=== PATIENT | female | born 1935 | race Caucasian/White ===

== ENCOUNTER → 2016-05-28 | Outpatient (CLI) | payer OTHER ==
[~2016-05-28] VITALS: Ht 152.4 cm; Wt 54.2 kg
[~2016-05-28] MED LIST: ABILIFY10 MG; ABILIFY10 MG PO; AMBIEN 5 MG TABL5 MG PO; APAP500 PO; APLENZIN174 MG; BENICAR 5 MG5 MG PO; BENICAR20 MG PO; BUDEPRION SR150 MG PO; CARVEDILOL6.25 MG PO; CELEBREX 200 M200 MG PO; COUMADIN 1MG TAB1 M1 PO; COUMADIN 2 MG TA2 M1 PO; CYCLOBENZAPRINE10 MG PO; CYCLOBENZAPRINE5 MG; ENALAPRIL MALEA10 M1 PO; ENDOCET 10-3251 EACH PO; FENTANYL PA12 MCG/H1 TP; FENTANYL PA12 MCG/HR TP; FENTANYL PA25 MCG/HR TRANSDERM; FISH OIL 1,001000 M2 PO; HYDROCODON-ACE1 EAC7 PO; HYDROCODONE-AP1 EAC6 PO; HYDROCODONE-APA1 TA1 PO; LIPITOR40 MG PO; LOSARTAN POTAS100 MG PO; MEDROLDOSEPACK PO; NEURONTIN 300300 M1 PO; OXYCODONE HCL5 M1 PO; OXYCODONE-ACET1 EAC2 PO; OXYCODONE-APAP1 EAC6 PO; PERCOCET 10-321 EACH; PERCOCET 5-3251 EACH PO; PERCOCET 7.5-31 EACH PO; TOPROL XL25 MG PO; VICODIN 5-5001 EACH PO; ZOLOFT 50 MG TA50 M1 PO
--- NOTE | ~2016-05-28 | HPC ---
[facility] [address] [place] [address] PAIN MANAGEMENT CONSULTATION Name: BRITTANY ROUSSEAU Room #: REG [facility] M..#: [id number] Admission: 05/28/16 Attend Phys: Cesar Kam DO Discharge: Date of : 37 Report #: [id number] THIS REPORT FOR: //name// CC: Cesar Azevedo DATE OF SERVICE: 05/28/2016 REFERRING PHYSICIAN: Cesar Donaldson DO CHIEF COMPLAINT: Low back pain, left lower extremity pain and paresthesias. HISTORY OF PRESENT ILLNESS: As you know, patient is a 81-year-old female who returns today in followup visit for continuation of medication therapy. She states that the combination of medications provided at last visit is improving pain significantly. She rarely relies on any of the hydrocodone since her fentanyl 25 mcg patch was begun. She is extremely pleased with response to the medication, returning today in followup visit, denying side effects of somnolence, decreased mental acuity, disorientation, confusion or constipation. She is now able to participate more fully in activities indicating today that she feels better than she has in years. She returns today for medication management refills. ALLERGIES: CIPROFLOXACIN. CURRENT MEDICATIONS: Fentanyl 25 mcg q. 72 hours, hydrocodone/acetaminophen 5/325 one tab p.o. q.8 hours p.r.n. for pain, losartan 100 mg per day, metoprolol 25 mg per day, acetaminophen 500 mg twice a day, omega-3 fish oil 1 tab per day, warfarin 2 mg per day, atorvastatin 40 mg per day. SOCIAL HISTORY: The patient continues to smoke 1 pack tobacco per day, has done so for as long as she can remember. Denies IV or illicit drug use. Denies any chronic alcohol use. Unaccompanied today. IMAGING: No new imaging available. PHYSICAL EXAMINATION: GENERAL: Well developed, well nourished, well hydrated 81-year-old female, smells strongly of tobacco smoke, placing current pain score 1-2/10. HEENT: Normocephalic, atraumatic. Pupils equal, round, reactive to light. Speech fluent. EXTREMITIES: Show no clubbing, no cyanosis, no edema. MUSCULOSKELETAL: Seated straight leg raising negative. Supine straight leg raising positive. Fabere's test negative. Gait is antalgic, but significantly improved. She is displaying scoliosis and kyphosis in a standing position. [address] [address] PAIN MANAGEMENT CONSULTATION Name: BRITTANY ROUSSEAU Room #: REG [facility]#: [id number] Admission: 05/28/16 Attend Phys: Cesar Kam DO Discharge: Date of : 37 Report #: [id number] ASSESSMENT: 1. Symptomatic lumbar radiculopathy. 2. Spinal stenosis of lumbar spine. 3. Scoliosis. 4. Kyphosis. 5. Lumbosacral spondylosis with radicular symptoms. 6. Lumbar degeneration. 7. Chronic intractable pain. PLAN: 1. The patient returns today in followup visit having noted excellent benefit with medication management. The patient indicates her pain is very well controlled with the fentanyl. She rarely utilizes the hydrocodone. She returns today in followup visit for refills of fentanyl for the next 2 months. 2. The patient was provided a prescription of fentanyl 25 mcg patch 1 patch q. 72 hours. She has not completed her 8 week release from last visit, so she will be provided a 4-week release and 8 week release today for 3 months worth of medication. She is to go ahead and fill the 8 week release from last visit to complete 3 months and then initiate therapy with the new prescriptions in 4 weeks and 8 weeks. 3. The patient was provided a prescription of hydrocodone 5/325 one tab p.o. q. 6 hours p.r.n. for pain, I have given the patient #60. This should provide the patient with enough medication for the next 3 months. 4. We will see the patient back in followup visit in 3 months for medication management, earlier if changes need to be addressed. 5. We did discuss with the patient again smoking cessation. We strongly suggest the patient initiated cessation of smoking as smoking has been directly linked to increasing chronic pain. The patient will consider options, but is likely not to make any changes in her social history. We strongly suggest this once again as this would improve her overall pain and decrease comorbid issues. By: [id number] Cesar Kam DO /nt
[2016-05-28 13:07] VITALS: BP 115/64
== END | disposition home or self-care (01) ==
LOC: PAIN 12:58
DX: M54.16 Radiculopathy, lumbar region (principal); M48.06 Spinal stenosis, lumbar region; M41.9 Scoliosis, unspecified; M40.209 Unspecified kyphosis, site unspecified; M51.36 Other intervertebral disc degeneration, lumbar region; G89.29 Other chronic pain; F17.290 Nicotine dependence, other tobacco product, uncomplicated

== ENCOUNTER → 2016-09-25 | Outpatient (CLI) | payer OTHER ==
[~2016-09-25] VITALS: Ht 152.4 cm; Wt 51.0 kg
--- NOTE | ~2016-09-25 | HPC ---
[facility] [place] [address] PAIN MANAGEMENT CONSULTATION Name: BRITTANY ROUSSEAU Room #: REG [facility]..#: [id number] Admission: 09/25/16 Attend Phys: Cesar Kam DO Discharge: Date of : 37 Report #: [id number] THIS REPORT FOR: //name// CC: Cesar Azevedo DATE OF SERVICE: 09/25/2016 CHIEF COMPLAINT: Low back pain, left lower extremity pain and paresthesias, generalized body pain. HISTORY OF PRESENT ILLNESS: As you know, patient is a 81-year-old female with longstanding history of low back pain, left lower extremity pain and paresthesias and generalized body pain. She has been started on fentanyl at 25 mcg along with hydrocodone 5/325 one tab every 8 hours p.r.n. for pain, is working well for pain control. The patient is placing pain score of around 3/10 at present. She does indicate pain is exacerbated with walking, which can reach a level of 6-7/10. Despite this elevated pain score, the patient indicates pain medications are working well. She is denying any side effects with the therapy and wishes to continue the treatment as currently prescribed. The patient continues to smoke despite our discussions to discontinue and how smoking can affect chronic pain. She returns today for refills of medications. ALLERGIES: CIPROFLOXACIN. CURRENT MEDICATIONS: Hydrocodone 5/325 one tab every 8 hours p.r.n. for pain, fentanyl 25 mcg q. 72 hours, losartan 100 mg per day, metoprolol 25 mg once a day, Tylenol 500 mg twice a day, omega-3 fish oil 1 tab per day, warfarin 2 mg p.o. every day, atorvastatin 40 mg per day. SOCIAL HISTORY: The patient continues to smoke 1 pack of tobacco or greater per day. She has done so for as long as she can remember. Denies IV or illicit drug use. Denies any chronic alcohol use. She is accompanied by her son who is present in room today. IMAGING: No new imaging available. PHYSICAL EXAMINATION: VITAL SIGNS: Blood pressure 116/67, pulse 120, respiratory rate 16, unlabored. The patient is 98% on room air. Height 5 feet tall, weight 112.4 pounds, BMI calculated 22.0. GENERAL: Well-developed, well-nourished, well-hydrated, kyphotic and scoliotic 81-year-old female, smells strongly of tobacco smoke, placing current pain score around 3-6/10 depending on activity. HEENT: Normocephalic, atraumatic. Pupils are equal, round, reactive to light. [address] [address] PAIN MANAGEMENT CONSULTATION Name: BRITTANY ROUSSEAU Room #: REG [facility] M..#: [id number] Admission: 09/25/16 Attend Phys: Cesar Kam DO Discharge: Date of : 37 Report #: [id number] Speech is fluent. EXTREMITIES: Show no clubbing, no cyanosis, no edema. MUSCULOSKELETAL: Seated straight leg raising negative. Supine straight leg raising remains positive left. Roni's test negative. Modified Gaenslen's positive for axial low back pain. Gait is kyphotic, scoliotic and antalgic favoring the left lower extremity. Muscle bulk and tone equal and symmetrical in lower extremities. ASSESSMENT: 1. Symptomatic lumbar radiculopathy. 2. Progressively worsening spinal stenosis of lumbar spine. 3. Scoliosis. 4. Kyphosis. 5. Lumbosacral spondylosis with radicular symptoms. 6. Lumbar degeneration. 7. Tobacco habituation. 8. Chronic intractable pain. PLAN: 1. The patient returns today in followup visit requesting refill on medications. The patient is indicating increasing pain levels, now placing pain score anywhere from 3-6/10 depending on activity. I have advised the patient at this time, we would strongly recommend discontinuation of smoking. I understand the patient has been smoking for virtually her entire life, but this is not a reason to continue to participate in an activity that is known to exacerbate chronic pain. We have had a very long discussion with the patient today. I am confident she will not take our suggestions. Did discuss with the patient the concern we have with smoking and how it directly affects pain and that increasing her pain medications from here forward would be predicated on the fact that the patient is continuing to participate in activities that exacerbate symptoms. We have advised the patient at this time further escalation in medications will not be provided to our services until she makes a concerted effort at reducing activities that are exacerbating her pain. 2. The patient was provided a prescription of fentanyl 25 mcg patch, 1 patch q. 72 hours. I have given the patient #10 patches, releases of today, 4 weeks from today, 8 weeks from today, 3 months' worth of medication. 3. The patient was provided prescription of hydrocodone 5/325 one tab p.o. q. 8 hours p.r.n. for pain. I have given the patient #90 tablets, no refills. This will last for 3 months. She is barely utilizing these medications and they are only being used on an as needed basis. 4. We will see the patient back in followup visit 3 months from today for [address] [address] PAIN MANAGEMENT CONSULTATION Name: BRITTANY ROUSSEAU Room #: [facility]#: [id number] Admission: 09/25/16 Attend Phys: Cesar Kam DO Discharge: Date of : 37 Report #: [id number] continuation of fentanyl therapy at 25 mcg and renew of her hydrocodone. She may return earlier for interventional treatments. <ELECTRONICALLY SIGNED> By: Cesar Kam DO 10/01/16 1258 [id number] [id number] Cesar Kam DO /nt
[2016-09-25 10:47] VITALS: BP 116/67
== END | disposition home or self-care (01) ==
LOC: PAIN 07:16
DX: M47.26 Other spondylosis with radiculopathy, lumbar region (principal); M47.27 Other spondylosis with radiculopathy, lumbosacral region; M41.86 Other forms of scoliosis, lumbar region; M48.06 Spinal stenosis, lumbar region; F17.200 Nicotine dependence, unspecified, uncomplicated

== ENCOUNTER → 2017-01-28 | Outpatient (CLI) | payer OTHER ==
[~2017-01-28] VITALS: Ht 152.4 cm; Wt 50.4 kg
[~2017-01-28] MED LIST changes: +DURAGESIC25 MCG/HR TRANSDERM
--- NOTE | ~2017-01-28 | HPC ---
[facility] [address] [place] [address] PAIN MANAGEMENT CONSULTATION Name: BRITTANY ROUSSEAU Room #: REG [facility].#: [id number] Admission: 01/28/17 Attend Phys: Cesar Kam DO Discharge: Date of : 37 Report #: [id number] THIS REPORT FOR: //name// CC: Cesar Azevedo DATE OF SERVICE: 01/28/2017 REFERRING PHYSICIAN: Cesar Donaldson DO CHIEF COMPLAINT: Low back pain, left lower extremity pain and paresthesias, generalized body pain. HISTORY OF PRESENT ILLNESS: As you know, the patient is a 81-year-old female who returns today in followup visit for medication management. She states medications are working beneficially for pain control, in fact she indicates about an 80% improvement in overall pain. Interestingly, the patient does provide a pain score 6/10 today, which does not correlate with that statement. She indicates pain is chronic and stabbing in nature, exacerbated with standing and walking, improves with medications, sitting and lying down. She returns today in followup visit indicating that she remains a heavy smoker and has not chosen to discontinue or reduce her reliance on this social activity, which has been known to cause direct increase in chronic pain. She returns today for medication refills. ALLERGIES: CIPROFLOXACIN. CURRENT MEDICATIONS: Hydrocodone, fentanyl, losartan, metoprolol, Tylenol, omega-3 fish oil, warfarin, and atorvastatin. SOCIAL HISTORY: The patient continues to smoke at least 1 pack tobacco per day. Denies IV or illicit drug use. Denies any chronic alcohol use. Unaccompanied today. IMAGING: No new imaging available. PHYSICAL EXAMINATION: VITAL SIGNS: Blood pressure 126/65, pulse 78, respiratory rate 14 and unlabored, the patient is 100% on room air, height 5 feet tall, weight 111.2 pounds, and BMI calculated 21.7. GENERAL: Well-developed, well-nourished, well-hydrated, thin, kyphotic and scoliotic 81-year-old female, she appears much older than stated age, smells strongly of tobacco smoke, placing current pain score 6/10. HEENT: Normocephalic, atraumatic. Pupils are equal, round, and reactive to light. Speech is fluent. [address] [address] PAIN MANAGEMENT CONSULTATION Name: BRITTANY ROUSSEAU Room #: REG [facility]#: [id number] Admission: 01/28/17 Attend Phys: Cesar Kam DO Discharge: Date of : 37 Report #: [id number] EXTREMITIES: Show clubbing, no cyanosis, no edema. MUSCULOSKELETAL: Seated straight leg raising negative. Supine straight leg raising positive on the left. Roni's test negative. Modified Gaenslen's positive for axial low back pain. Gait is antalgic. Stance is kyphotic with loss of lordotic curvature. ASSESSMENT: 1. Symptomatic lumbar radiculopathy. 2. Progressively worsening spinal stenosis of the lumbar spine. 3. Scoliosis. 4. Kyphosis. 5. Lumbosacral spondylosis with radiculopathy. 6. Lumbar degeneration. 7. Tobacco habituation. 8. Chronic intractable pain. PLAN: 1. The patient has returned today in followup visit where we have discussed at length medication management. The patient feels medications are working beneficially, providing an extremely high level of improvement 90%, though the patient continues to experience pain level of 6/10, which does not correlate with that statement. We have discussed this with the patient today. She indicates that she is experiencing 6/10 pain today. We have discussed with the patient medications, we did indicate the medications are being provided to gain analgesic benefit the fact that she continues to participate in activities that are known to exacerbate symptoms are quite concerning. We have discussed the smoking issue with the patient in the past and have done so again today. I did indicate that these medications may ultimately be predicated on the fact that she is participating in activities that improve pain and not worsen symptoms. These medications may ultimately have to be reduced if she cannot discontinue the activity of smoking, which she has been participating in for over 56 years. 2. The patient was provided a prescription of fentanyl 25 mcg patch 1 patch q.72 hours, #10, release dates of today, 4 weeks from today, and 8 weeks from today, this is 3 months' worth of medication. 3. The patient was provided a prescription of hydrocodone 5/325 one tab every 8 hours p.r.n. for pain, #90, release dates of today, 4 weeks from today, 8 weeks from today, 3 months' worth of medication. 4. The patient was offered the opportunity to initiate medication to help smoking cessation. We also offered assistance in sending the patient for cognitive behavioral therapy. The patient declined all our offers to assist in [address] [address] PAIN MANAGEMENT CONSULTATION Name: BRITTANY ROUSSEAU Room #: [facility]#: [id number] Admission: 01/28/17 Attend Phys: Cesar Kam DO Discharge: Date of : 37 Report #: [id number] smoking cessation. 5. We will see the patient back in followup visit in 3 months from today. <ELECTRONICALLY SIGNED> By: Cesar Kam DO 01/29/17 1219 [id number] [id number] Cesar Kam DO /nt
[2017-01-28 11:05] VITALS: BP 126/65
== END ==
LOC: PAIN 06:46
DX: M47.27 Other spondylosis with radiculopathy, lumbosacral region (principal); M41.86 Other forms of scoliosis, lumbar region; M48.061 Spinal stenosis, lumbar region without neurogenic claudication; G89.29 Other chronic pain; M79.662 Pain in left lower leg; F17.200 Nicotine dependence, unspecified, uncomplicated

== ENCOUNTER → 2017-05-21 | Outpatient (CLI) | payer OTHER ==
[~2017-05-21] VITALS: Ht 152.4 cm; Wt 50.4 kg
[~2017-05-21] MED LIST changes: +XARELTO15 MG PO
--- NOTE | ~2017-05-21 | HPC ---
[facility] [place] [address] PAIN MANAGEMENT CONSULTATION Name: BRITTANY ROUSSEAU Room #: REG [facility].#: [id number] Admission: 05/21/17 Attend Phys: Cesar Kam DO Discharge: Date of : 37 Report #: [id number] THIS REPORT FOR: //name// CC: Cesar Azevedo DATE OF SERVICE: 05/21/2017 REFERRING PHYSICIAN: Cesar Donaldson DO. CHIEF COMPLAINT: Low back pain, left lower extremity pain with paresthesias, generalized body pain. HISTORY OF PRESENT ILLNESS: As you know, the patient is an 82-year-old female who returns today in followup visit for medication management. She states medications are working beneficially for pain control. Despite the fact that patient is indicating good control with pain medications, she is placing pain score of 4/10. She continues to smoke heavily and this is exacerbating her symptoms. She indicates pain is exacerbated with walking, standing, cooking, improves with medications, sitting and lying down. She has returned today in followup visit requesting refill on medications. She reports pain is aching, dull and chronic in nature. No changes in medical history since our last visit. ALLERGIES: CIPROFLOXACIN. CURRENT MEDICATIONS: Hydrocodone, fentanyl, losartan, metoprolol, Tylenol, omega-3 fish oil, warfarin, and atorvastatin. SOCIAL HISTORY: The patient continues to smoke minimum 1 pack tobacco per day. Denies IV or illicit drug use. Denies any chronic alcohol use. She is accompanied by family members present in room today. IMAGING: No new imaging available. PQRS: The patient has osteoarthritis, no rheumatoid arthritis. She has pain level of 4/10. She is a fall risk, but has not fallen in the past 3 months. The patient is on blood thinners. She is treated for hypertension. She has been on opioids for much longer than 6 weeks. She has a low to medium risk assessment for opioid addiction. Functional assessment pain impact score of 38/70 indicating moderate interference. PHYSICAL EXAMINATION: VITAL SIGNS: Blood pressure 132/69, pulse 89, respiratory rate 14 and unlabored. The patient is 97% on room air. Height 5 feet tall, weight 111.2 pounds, BMI [place] 21.7. [place] [address] PAIN MANAGEMENT CONSULTATION Name: BRITTANY ROUSSEAU Room #: REG [facility].#: [id number] Admission: 05/21/17 Attend Phys: Cesar Kam DO Discharge: Date of : 37 Report #: [id number] GENERAL: Well-developed, thin, kyphotic, scoliotic 82-year-old female, appears much older than stated age, smells strongly of tobacco smoke, placing pain score 4/10. HEENT: Normocephalic, atraumatic. Pupils equal, round, reactive to light. Speech fluent for patient. EXTREMITIES: Show no clubbing, no cyanosis, no edema. MUSCULOSKELETAL: Lower extremity strength is weakened bilaterally. This is due to deconditioning. Seated straight leg raising negative. Supine straight leg raising positive on the left. ALEJO test negative. Modified Gaenslen's positive for axial low back pain. Gait is antalgic. She is using a roller walker. ASSESSMENT: 1. Symptomatic lumbar radiculopathy. 2. Progressively worsening spinal stenosis of lumbar spine. 3. Scoliosis. 4. Kyphosis. 5. Lumbosacral spondylosis with radiculopathy. 6. Lumbar degeneration. 7. Tobacco abuse. 8. Chronic intractable pain. PLAN: 1. The patient returns today in followup visit requesting refill on medications. She indicates pain medications are working beneficially for pain control despite the pain level of 4/10. She is denying any side effects to medication including somnolence, decrease in mental acuity, disorientation and confusion. She does find the medications beneficial allowing her to go about her activities of daily living. She has requested refill on medications at this time. 2. The patient was provided a prescription of fentanyl 25 mcg patch 1 patch q. 72 hours, #10 releases of today, 4 weeks from today, 8 weeks from today. This totals 60 mg morphine equivalents per day. 3. The patient was provided prescription of hydrocodone 5/325 one tab every 8 hours p.r.n. for pain, given #90 tablets releases of today, 4 weeks from today, 8 weeks from today. This equals 15 morphine equivalents a day. 4. The patient and I had a very long discussion again about smoking cessation and how smoking directly links to chronic pain issues. I have recommended and have recommended throughout our history smoking cessation as a way to improve her overall pain. The patient is unwilling to make this change. 5. We will see the patient back in followup visit in 3 months. At that time, [address] [address] PAIN MANAGEMENT CONSULTATION Name: BRITTANY ROUSSEAU Room #: [facility]#: [id number] Admission: 05/21/17 Attend Phys: Cesar Kam DO Discharge: Date of : 37 Report #: [id number] we will discuss medication management and adjust if necessary to new CDC guidelines. <ELECTRONICALLY SIGNED> By: Cesar Kam DO 05/27/17 0935 [id number] [id number] Cesar Kam DO /nt
[2017-05-21 11:07] VITALS: BP 132/69
== END ==
LOC: PAIN 06:54
DX: M47.27 Other spondylosis with radiculopathy, lumbosacral region (principal); M51.36 Other intervertebral disc degeneration, lumbar region; M48.061 Spinal stenosis, lumbar region without neurogenic claudication; M41.9 Scoliosis, unspecified; G89.4 Chronic pain syndrome; F17.200 Nicotine dependence, unspecified, uncomplicated

== ENCOUNTER → 2017-09-23 | Outpatient (CLI) | payer OTHER ==
[~2017-09-23] VITALS: Ht 152.4 cm; Wt 50.7 kg
--- NOTE | ~2017-09-23 | HPC ---
[facility] [address] [place] [address] PAIN MANAGEMENT CONSULTATION Name: BRITTANY ROUSSEAU Room #: REG [facility].#: [id number] Admission: 09/23/17 Attend Phys: Cesar Kam DO Discharge: Date of : 39 Report #: [id number] THIS REPORT FOR: //name// CC: Cesar Azevedo DATE OF SERVICE: 09/23/2017 REFERRING PHYSICIAN: Cesar Donaldson D.O. CHIEF COMPLAINT: Low back pain, left lower extremity pain with paresthesias and generalized body pain. HISTORY OF PRESENT ILLNESS: As you know, the patient is an 82-year-old female who returns today in followup visit for medication management. The patient states pain medications are working well. She denies any side effects of the medication including somnolence, decreased mental acuity, disorientation and confusion. As you are aware, the patient suffers from progressively worsening spinal stenosis that leads to lumbar radicular symptoms involving left lower extremity. She also has severe scoliosis and severe kyphosis leading to intractable upper back pain. She returns today in followup visit requesting refill of medications. She continues to abuse tobacco despite our suggestions to discontinue as this is promoting her ongoing pain issues. She returns today requesting refill on medications. ALLERGIES: To CIPROFLOXACIN. CURRENT MEDICATIONS: Hydrocodone, fentanyl, losartan, metoprolol, Tylenol, omega 3 fish oil, warfarin and atorvastatin. SOCIAL HISTORY: The patient continues to smoke 1 pack tobacco per day. Denies IV or illicit drug use. Denies any chronic alcohol use. She is unaccompanied today. IMAGING DATA: No new imaging available. PQRS: The patient has osteoarthritis of the cervical, thoracic and lumbar area. She has arthritic changes of the hands bilaterally, bilateral knees, bilateral ankles and bilateral hips. She does not suffer from rheumatoid arthritis. She is placing current pain score 2-9/10 depending on activity. She is at fall risk but has not had a fall in the last 3 months. She is on blood thinners. She is treated for hypertension. She has been on opioids for greater than 6 months, is under contract with [facility] for medication management. She has a medium risk of his opioid addiction. [address] [address] PAIN MANAGEMENT CONSULTATION Name: BRITTANY ROUSSEAU Room #: REG [facility].#: [id number] Admission: 09/23/17 Attend Phys: Cesar Kam DO Discharge: Date of : 37 Report #: [id number] PAIN IMPACT SCORE: Functional assessment pain impact score is 45/70. K-TRACS and MoTracks are negative for any concerning injuries. She appears to be utilizing her medications appropriately. PHYSICAL EXAMINATION: VITAL SIGNS: Blood pressure 137/67, pulse is 88 and respiratory rate 14 and unlabored. The patient is 97% on room air. Height 5 feet tall 100, weight 111.8 pounds and BMI calculated 21.8. GENERAL: Well-developed, well-nourished and well-hydrated, scoliotic and kyphotic 82-year-old female, smell strongly of tobacco smoke, placing pain score anywhere from 2-9/10. HEENT: Normocephalic and atraumatic. Pupils equal, round and reactive to light. EXTREMITIES: Show no clubbing and no cyanosis. MUSCULOSKELETAL: Lower extremity strength is weakened bilaterally, this appears to be deconditioning. Seated straight leg raising negative. Supine straight leg raising mildly positive on in the left. Roni's test negative. ASSESSMENT: 1. Symptomatic lumbar radiculopathy. 2. Progressively worsening spinal stenosis of the lumbar spine. 3. Kyphoscoliosis. 4. Lumbosacral spondylosis with radiculopathy. 5. Lumbar degeneration. 6. Lumbosacral spondylosis with radiculopathy. 7. Chronic intractable pain. PLAN: 1. The patient returns today in followup visit requesting refill of medications. She feels medications are working beneficially, providing upwards of 70% improvement in overall pain despite the elevated pain levels of 2-9/10 depending on activity. She has requested a refill of medication be provided today. 2. We reviewed the fact that opiate medications are being used to provide analgesia adequate to support activities of daily living, not attempting to achieve a specific pain score on the 0-10 Visual Analog Scale. The current opiate medications are providing sufficient analgesia to allow the patient to participate in activities of daily living. The patient is not exhibiting any aberrant behavior suggestive of drug diversion. The patient is not having any adverse reactions to medications. The patient is not suffering from daytime somnolence or mental acuity changes. The patient is managing opiate-induced constipation with appropriate mpev-icf-ryhlzzs agents and dietary considerations. The patient was counseled on concern for caution with operating a motor vehicle while using opiate medications. [facility] [address] [place] [address] PAIN MANAGEMENT CONSULTATION Name: BRITTANY ROUSSEAU Room #: REG [facility]#: [id number] Admission: 09/23/17 Attend Phys: Cesar Kam DO Discharge: Date of : 37 Report #: [id number] A physical exam was performed and the patient's functional status was evaluated. All patients with back pain were advised against the bed rest greater than 4 days and were advised to return to normal activities. Pain score assessment was noted and the treatment plan was reviewed with the patient. All current medications, both prescribed and OTC were reviewed and reconciled on the electronic medical record. Tobacco screening was accomplished and smoking cessation was advised when indicated. BMI was noted and diet/exercise modification was recommended for all patients following outside normal parameters. I reviewed with the patient today their responsibilities to safeguard prescription medications, reviewed their responsibility to utilize medications only as prescribed by the physician. They are to seek and receive pain medications only from 1 physician group ( [facility]). They are to use 1 pharmacy and keep the clinic informed if they change pharmacies. Their responsibilities include making followup visits in a timely fashion and to avoid abrupt discontinuation of medication usage. Their responsibilities further include bringing their medications (bottles from the pharmacy with residual pills) to the visit for possible confirmation of pill counts and the patient understands it is their responsibility to submit to random drug screens to ensure both that the medications prescribed are present, and that no other controlled substances are present. All prescriptions provided today were generated electronically. 3. The patient was provided a prescription of fentanyl 25 mcg patch 1 patch q. 72 hours. I have given the patient #10, releases of today, 4 weeks from today, 8 weeks from today, 3 months' worth of medication. She has total morphine equivalents of 60 mg with the use of the fentanyl. 4. The patient was provided a prescription of hydrocodone 5/325 one tab every 8 hours p.r.n. for pain. I have released the medication today #90 tablets, no refills. She takes these sparingly and only uses them when her pain is intense. She has been using them appropriately. 5. We will see the patient back in followup visit in 3 months for medication therapy. <ELECTRONICALLY SIGNED> By: Cesar Kam DO 09/24/17 [id number] Cesar Kam DO /nt
[2017-09-23 14:30] VITALS: BP 137/67
== END ==
LOC: PAIN 07:09
DX: M47.27 Other spondylosis with radiculopathy, lumbosacral region (principal); M51.16 Intervertebral disc disorders with radiculopathy, lumbar region; M48.061 Spinal stenosis, lumbar region without neurogenic claudication; G89.4 Chronic pain syndrome; M41.86 Other forms of scoliosis, lumbar region

== ENCOUNTER → 2018-01-20 | Outpatient (CLI) | payer OTHER ==
[~2018-01-20] VITALS: Ht 152.4 cm; Wt 55.5 kg
[~2018-01-20] MED LIST changes: +DURAGESIC1 EAC4 TRANSDERM
--- NOTE | ~2018-01-20 | HPC ---
[facility] [address] [place] [address] PAIN MANAGEMENT CONSULTATION Name: BRITTANY ROUSSEAU Room #: REG [facility].#: [id number] Admission: 01/20/18 Attend Phys: Cesar Kam DO Discharge: Date of : 37 Report #: [id number] THIS REPORT FOR: //name// CC: Cesar Azevedo DATE OF SERVICE: 01/20/2018 REFERRING PHYSICIAN: Cesar Donaldson D.O. CHIEF COMPLAINT: Low back pain, left lower extremity pain with paresthesias and generalized body pain. HISTORY OF PRESENT ILLNESS: As you know, the patient is an 82-year-old female returning in followup visit for medication management. She feels medications are working beneficially to treat her low back pain and left lower extremity pain and generalized body pain. The patient places pain score no greater than 6-7/10 today but states this is mainly due to increasing cold temperatures. Overall, the patient states the medications are working up to 70%-80% overall. She returns today in followup visit for medication management. She is denying side effects of sleepiness, disorientation, confusion and mental slowing with the use of therapy. ALLERGIES: CIPROFLOXACIN. CURRENT MEDICATIONS: Fentanyl 25 mcg q. 72 hours, Xarelto 15 mg once a day, losartan 100 mg per day, metoprolol 25 mg once a day, atorvastatin 40 mg per day and hydrocodone 5/325 one tab every 6 hours p.r.n. pain. SOCIAL HISTORY: The patient continues to smoke 1 pack tobacco per day. Denies IV or illicit drug use. Denies any chronic alcohol use. She is unaccompanied today. IMAGING DATA : No new imaging available. PQRS: The patient has arthritic changes of the cervical spine, thoracic and lumbar area, bilateral hands, bilateral knees, bilateral ankles and bilateral hips. She does not suffer from rheumatoid arthritis and has no diagnosis of such. She is placing pain score 6-7/10, not a fall risk, has not had a fall in the last 3 months. She is on Xarelto for blood thinning. She is treated for hypertension. She has been on chronic opioids for greater than 6 weeks. She is under contract with [facility]. She is at a low assessment for opioid addiction. She is placing current pain impact/functional assessment at 38/70 indicating moderate interference of daily activities secondary to pain. [address] [address] PAIN MANAGEMENT CONSULTATION Name: BRITTANY ROUSSEAU Room #: REG [facility] Jonathan#: [id number] Admission: 01/20/18 Attend Phys: Cesar Kam DO Discharge: Date of : 37 Report #: [id number] PHYSICAL EXAMINATION: VITAL SIGNS: Blood pressure 126/61, pulse 85 and respiratory rate 14 and unlabored. The patient is 98% on room air. Height 5 feet tall, weight 122.4 pounds and BMI calculated 23.9. GENERAL: Well-developed, well-nourished and well-hydrated 82-year-old female, appears her stated age. She is in no acute distress, awake, alert and oriented x 3. Current pain score rated at 6-7/10. HEENT: Normocephalic and atraumatic. Pupils equal, round and reactive to light. Extraocular muscles are intact. Speech fluent. EXTREMITIES: Show no clubbing, no cyanosis and no edema. MUSCULOSKELETAL: Lower extremity strength is weakened bilaterally. Seated straight leg raise negative. Supine straight leg raising mildly positive left. Roni's test negative. Gait is antalgic favoring left lower extremity over right. Muscle bulk and tone appears symmetrical in comparing left lower extremity to right. ASSESSMENT: 1. Symptomatic lumbar radiculopathy. 2. Progressively worsening spinal stenosis of the lumbar spine. 3. Kyphoscoliosis. 4. Lumbosacral spondylosis with radiculopathy. 5. Lumbar degeneration. 6. Facet arthropathy of the lumbar spine. 7. Chronic intractable pain. 8. Complicated medication therapy. PLAN: 1. The patient returns today in followup visit where we have discussed the efficacy of the fentanyl along with hydrocodone dosing. The patient states 70%-80% improvement in overall pain despite the elevated pain level of 6-7/10 today. She denies any side effects to the medication including somnolence, decreased mental acuity, disorientation, confusion and mental slowing as well as constipation. She returns requesting refill of the medications for the next 3 months. 2. The patient will submit to urine drug screen as part of our monitoring program for chronic opioid medication management. She will undergo the testing today. She can contact the clinic next week for results. 3. We reviewed the fact that opiate medications are being used to provide analgesia adequate to support activities of daily living, not attempting to achieve a specific pain score on the 0-10 Visual Analog Scale. The current opiate medications are providing sufficient analgesia to allow the patient to participate in activities of daily living. The patient is not exhibiting any aberrant behavior suggestive of drug diversion. The patient is not having any adverse reactions to medications. The patient is not suffering from daytime somnolence or mental acuity changes. The patient is managing opiate-induced constipation with appropriate aknh-eer-byplcem agents and dietary [address] [address] PAIN MANAGEMENT CONSULTATION Name: BRITTANY ROUSSEAU Room #: REG [facility]#: [id number] Admission: 01/20/18 Attend Phys: Cesar Kam DO Discharge: Date of : 37 Report #: [id number] considerations. The patient was counseled on concern for caution with operating a motor vehicle while using opiate medications. A physical exam was performed and the patient's functional status was evaluated. All patients with back pain were advised against the bed rest greater than 4 days and were advised to return to normal activities. Pain score assessment was noted and the treatment plan was reviewed with the patient. All current medications, both prescribed and OTC were reviewed and reconciled on the electronic medical record. Tobacco screening was accomplished and smoking cessation was advised when indicated. BMI was noted and diet/exercise modification was recommended for all patients following outside normal parameters. I reviewed with the patient today their responsibilities to safeguard prescription medications, reviewed their responsibility to utilize medications only as prescribed by the physician. They are to seek and receive pain medications only from 1 physician group ( [facility]). They are to use 1 pharmacy and keep the clinic informed if they change pharmacies. Their responsibilities include making followup visits in a timely fashion and to avoid abrupt discontinuation of medication usage. Their responsibilities further include bringing their medications (bottles from the pharmacy with residual pills) to the visit for possible confirmation of pill counts and the patient understands it is their responsibility to submit to random drug screens to ensure both that the medications prescribed are present, and that no other controlled substances are present. All prescriptions provided today were generated electronically. 4. The patient was provided a prescription of fentanyl 25 mcg patch 1 patch q. 72 hours. I have given the patient #10 patches, releases of today, 4 weeks from today, 8 weeks from today, 3 months' worth of medication. The patient was advised to monitor this medication carefully. She is not to utilize more than 1 patch at a time and she is to rotate positions of the patch placement. 5. The patient was provided a prescription of hydrocodone 5/325 one tab p.o. q. 8 hours p.r.n. for pain. I have given the patient #90 tablets, no refills. The patient is to utilize medication only when pain is intolerable, not to rely on the medication prophylactically. 6. We will see the patient back in followup visit in 3 months for refill of medications. By: [id number] Cesar Kam DO /nt
[2018-01-20 09:13] VITALS: BP 126/61
== END ==
LOC: PAIN 08:26
DX: M47.27 Other spondylosis with radiculopathy, lumbosacral region (principal); M51.16 Intervertebral disc disorders with radiculopathy, lumbar region; M41.86 Other forms of scoliosis, lumbar region; M48.061 Spinal stenosis, lumbar region without neurogenic claudication; G89.4 Chronic pain syndrome; M12.88 Other specific arthropathies, not elsewhere classified, other specified site; Z79.899 Other long term (current) drug therapy

== ENCOUNTER → 2018-03-25 | Outpatient (CLI) | payer OTHER ==
[~2018-03-25] VITALS: Ht 152.4 cm; Wt 54.9 kg
[2018-03-25 08:48] VITALS: BP 123/67
--- NOTE | 2018-03-25 09:03 | NUR ---
Pain Clinic Assessment: 1. History of Osteoarthritis: none History of Rheumatoid Arthritis: none 2. Height: 5 ft. 0 in. 152.4 cm. Weight: 121.0 lb. oz. 54.885 kg. Patient's BMI: 23.6 3. Vital Signs: BP: 123/67 Pulse: 103 Resp: 14 Temp: 02 Sat: 98 ECG Mon: 4. Pain Intensity: 6-7 5. Fall Risk: Dizziness: N Needs help standing or walking: N Fallen in the last 3 months: N Fall risk comments: 6. Patient on Blood Thinner: xeralto 7. History of Hypertension: Y 8. Opioid Therapy greater than 6 weeks: Y Opiate Contract Signed: 05/21/17 9. Risk Assessment Tool Provided: low 10. Functional Assessment Tool: 11. Recreational Drug Use: Never Drug Type: Tobacco Use: Current Every Day Smoker Tobacco Type: Amount or Packs/day: How Many Years: Alcohol Use: Yes Frequency: Quant:
--- NOTE | 2018-04-07 07:32 | HPC ---
[facility] [place] [address] PAIN MANAGEMENT CONSULTATION Name: BRITTANY ROUSSEAU Room #: REG [facility] M.R.#: [id number] Admission: 03/25/18 ������������������ Attend Phys: Cesar Kam DO Discharge: ������������������ Date of : 37 Report #: [id number] THIS REPORT FOR: //name// CC: Cesar Azevedo DATE OF SERVICE: 03/25/2018 CHIEF COMPLAINT: Low back pain, left lower extremity pain and paresthesias. HISTORY OF PRESENT ILLNESS: As you know, the patient is an 83-year-old female who returns today in followup visit requesting refill on medications. She feels medications are providing upwards of 80% improvement in overall pain and despite this improvement in symptoms reported at 80%, she continues to report pain today at 6-7/10. She indicates no side effects to the medication including somnolence, decreased mental acuity, disorientation or confusion. She feels medications are beneficial. She returns requesting refill on medications to continue the analgesic benefit. ALLERGIES: CIPROFLOXACIN. CURRENT MEDICATIONS: Fentanyl 25 mcg q. 72 hours, Xarelto 15 mg once a day, losartan 100 mg per day, metoprolol 25 mg per day, atorvastatin 40 mg per day, hydrocodone 5/325 one tab p.o. q. 8 hours p.r.n. for pain. SOCIAL HISTORY: The patient continues to smoke 1 pack tobacco per day, has denied IV or illicit drug use. Denies any chronic alcohol use. She is unaccompanied today. IMAGING: There is no new imaging available. PQRS: The patient has osteoarthritic changes of the cervical spine, thoracic spine, lumbar spine, bilateral hands, bilateral knees, bilateral ankles, bilateral hips. She does not have a diagnosis of rheumatoid arthritis. She is placing current pain score at 6-7/10. She is a fall risk, but has not had a fall in the last 3 months. She has a cane for ambulation. She is on blood thinners in the form of Xarelto. She is treated for hypertension. She has been on chronic opioids for an extended period of time and is under contract with [facility]. She has a low to moderate risk assessment tool for opioid addiction. She is placing pain impact score 38/70 indicating moderate interference of daily activities secondary to pain. PHYSICAL EXAMINATION: VITAL SIGNS: Blood pressure 123/67, pulse 103, respiratory rate 14 and unlabored. The patient is 98% on room air. Height 5 feet tall, weight [address] [address] PAIN MANAGEMENT CONSULTATION Name: BRITTANY ROUSSEAU Room #: REG [facility].#: [id number] Admission: 03/25/18 ������������������ Attend Phys: Cesar Kam DO Discharge: ������������������ Date of : 37 Report #: [id number] pounds, BMI calculated 23.6. GENERAL: Well-developed, well-nourished, well-hydrated kyphotic and scoliotic 83-year-old female, smells strongly of tobacco smoke, placing current pain score 6-7/10. HEENT: Normocephalic, atraumatic. Pupils are equal, round, reactive to light. Speech remains fluent. EXTREMITIES: Show no clubbing, no cyanosis, no edema. MUSCULOSKELETAL: The patient has noted kyphotic and scoliotic curvature of the lumbar spine. Seated straight leg raising negative. Supine straight leg raising mildly positive to left. Gait remains antalgic favoring left lower extremity over right. Muscle bulk and tone appears symmetrical in lower extremity. PROCEDURE: 1. Symptomatic lumbar radiculopathy. 2. Progressively worsening spinal stenosis of lumbar spine. 3. Displacement of lumbar intervertebral disk with radiculopathy. 4. Lumbosacral spondylosis with radiculopathy. 5. Lumbar degeneration. 6. Facet arthropathy of the lumbar spine. 7. Chronic intractable pain. PLAN: 1. The patient returns today in followup visit requesting refill on medications. She is reporting 70-80% improvement in overall symptoms with the medication despite the elevated pain level of 6-7/10 today. She returns requesting refill on medications. She is denying side effects of sleepiness, disorientation, confusion, mental slowing or constipation that is not controlled with yklo-fge-yavqmbb medication. She returns today in followup visit for refill on medications. We reviewed the fact that opiate medications are being used to provide analgesia adequate to support activities of daily living, not attempting to achieve a specific pain score on the 0-10 Visual Analog Scale. The current opiate medications are providing sufficient analgesia to allow the patient to participate in activities of daily living. The patient is not exhibiting any aberrant behavior suggestive of drug diversion. The patient is not having any adverse reactions to medications. The patient is not suffering from daytime somnolence or mental acuity changes. The patient is managing opiate-induced constipation with appropriate zagp-hrn-degsjwd agents and dietary considerations. The patient was counseled on concern for caution with operating a motor vehicle while using opiate medications. A physical exam was performed and the patient's functional status was evaluated. All patients with back pain were advised against the bed rest greater than 4 days and were advised to return to normal activities. Pain score assessment was [address] [address] PAIN MANAGEMENT CONSULTATION Name: BRITTANY ROUSSEAU Room #: REG [facility]#: [id number] Admission: 03/25/18 ������������������ Attend Phys: Cesar Kam DO Discharge: ������������������ Date of : 37 Report #: [id number] noted and the treatment plan was reviewed with the patient. All current medications, both prescribed and OTC were reviewed and reconciled on the electronic medical record. Tobacco screening was accomplished and smoking cessation was advised when indicated. BMI was noted and diet/exercise modification was recommended for all patients following outside normal parameters. I reviewed with the patient today their responsibilities to safeguard prescription medications, reviewed their responsibility to utilize medications only as prescribed by the physician. They are to seek and receive pain medications only from 1 physician group ( [facility]). They are to use 1 pharmacy and keep the clinic informed if they change pharmacies. Their responsibilities include making followup visits in a timely fashion and to avoid abrupt discontinuation of medication usage. Their responsibilities further include bringing their medications (bottles from the pharmacy with residual pills) to the visit for possible confirmation of pill counts and the patient understands it is their responsibility to submit to random drug screens to ensure both that the medications prescribed are present, and that no other controlled substances are present. All prescriptions provided today were generated electronically. 2. The patient was provided a prescription of fentanyl 25 mcg patch 1 patch q. 72 hours, given the patient #10 patches releasing today, 4 weeks from today, 8 weeks from today, 3 months' worth of medication. 3. The patient was provided prescription of [place] 5/325 one tab p.o. q. 8 hours p.r.n. for pain, #90, releasing today. The patient will take this medication only as necessary. She has done well with the medication on an as needed basis in the past. We will see the patient back in followup visit in 3 months for medication management. ��������������������������������������������� <ELECTRONICALLY SIGNED> ���������������������������������������� By: Cesar Kam DO ��������������������������������������������� 04/07/18 0732 [id number] Cesar Kam DO /nt
== END ==
LOC: PAIN 06:57
DX: M47.27 Other spondylosis with radiculopathy, lumbosacral region (principal); M51.16 Intervertebral disc disorders with radiculopathy, lumbar region; M12.88 Other specific arthropathies, not elsewhere classified, other specified site; G89.4 Chronic pain syndrome; Z79.899 Other long term (current) drug therapy

== ENCOUNTER → 2018-08-26 | Outpatient (CLI) | payer OTHER ==
[~2018-08-26] VITALS: Ht 152.4 cm; Wt 53.2 kg
[~2018-08-26] MED LIST changes: +NORCO 5-325 TA1 EAC1 PO
[2018-08-26 10:14] VITALS: BP 130/60
--- NOTE | 2018-08-26 10:21 | NUR ---
Pain Clinic Assessment: 1. History of Osteoarthritis: none History of Rheumatoid Arthritis: none 2. Height: 5 ft. 0 in. 152.4 cm. Weight: 117.2 lb. oz. 53.161 kg. Patient's BMI: 22.9 3. Vital Signs: BP: 130/60 Pulse: 88 Resp: 14 Temp: 02 Sat: 100 ECG Mon: 4. Pain Intensity: 4 5. Fall Risk: Dizziness: N Needs help standing or walking: Y Fallen in the last 3 months: N Fall risk comments: 6. Patient on Blood Thinner: xeralto 7. History of Hypertension: Y 8. Opioid Therapy greater than 6 weeks: Y Opiate Contract Signed: 05/21/17 9. Risk Assessment Tool Provided: low 10. Functional Assessment Tool: 11. Recreational Drug Use: Never Drug Type: Tobacco Use: Current Every Day Smoker Tobacco Type: Cigarettes Amount or Packs/day: 1 How Many Years: Alcohol Use: Yes Frequency: Quant:
--- NOTE | 2018-09-01 14:01 | HPC ---
[facility] [place] [address] PAIN MANAGEMENT CONSULTATION Name: BRITTANY ROUSSEAU Room #: REG [facility] M..#: [id number] Admission: 08/26/18 ������������������ Attend Phys: Cesar Kam DO Discharge: ������������������ Date of : 37 Report #: [id number] THIS REPORT FOR: //name// CC: Cesar Azevedo DATE OF SERVICE: 08/26/2018 CHIEF COMPLAINT: Low back pain, left lower extremity pain with paresthesias. HISTORY OF PRESENT ILLNESS: As you know, the patient is an 83-year-old female returning in followup visit requesting refill on medications. We have been treating the patient for chronic axial back pain and lumbar radicular symptoms secondary to progressively worsening spinal stenosis. She states the combination of medications along with changes in her daily activity have improved her overall pain. She is now reporting pain no greater than 4/10, which is tolerable for her. She returns today in followup visit requesting refill of medications. She denies any new injury or trauma or even changes in medical history since our last visit. She continues to participate in active daily smoking despite our discussions to discontinue this activity as it does tend to exacerbate pain. ALLERGIES: CIPROFLOXACIN. CURRENT MEDICATIONS: Fentanyl 25 mcg q. 72 hours, Xarelto 15 mg p.o. at bedtime, losartan 100 mg per day, metoprolol 25 mg once a day, atorvastatin 40 mg per day, hydrocodone 5/325 one tab p.o. q. 6 hours p.r.n. pain. SOCIAL HISTORY: The patient continues to smoke 1 pack of tobacco per day. Denies IV or illicit drug use. Denies any chronic alcohol use. She is retired, accompanied by her son present in room today. IMAGING: No new imaging available. PQRS: The patient has known osteoarthritic changes of the cervical spine, thoracic spine, lumbar spine, bilateral hands, bilateral knees, bilateral ankles and bilateral hips. She has no diagnosis of rheumatoid arthritis. She is placing pain intensity at 4/10. She is a fall risk and utilizes a roller walker for ambulation and cane for ambulation. She has not had a fall in the last 3 months. She is on blood thinners in the form of Xarelto. She is treated for hypertension. She has been on opioids for an extended period of time. She has a low risk of opioid addiction, though she is noted to have an addiction to tobacco. Pain impact score 38/70 moderate interference of daily activities secondary to pain. [address] [address] PAIN MANAGEMENT CONSULTATION Name: BRITTANY ROUSSEAU Room #: REG [facility].#: [id number] Admission: 08/26/18 ������������������ Attend Phys: Cesar Kam DO Discharge: ������������������ Date of : 37 Report #: [id number] PHYSICAL EXAMINATION: VITAL SIGNS: Blood pressure 130/60, pulse 88, respiratory rate 14 and unlabored. The patient is 100% on room air. Height 5 feet tall, weight 117.2 pounds, BMI calculated 22.9. GENERAL: Well-developed, well-nourished, well-hydrated, thin, kyphotic and scoliotic 83-year-old female appearing her stated age, smells strongly of tobacco smoke, placing current pain score at 4/10. HEENT: Normocephalic, atraumatic. Pupils equal, round, reactive to light. EXTREMITIES: Show no clubbing, no cyanosis, and no edema. 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 Seated straight leg raising negative. Supine straight leg raising mildly positive on the right. Gait is antalgic favoring left lower extremity over right. Muscle bulk and tone appears symmetrical when comparing left lower extremity to right lower extremity. Gait is noted antalgic. Babinski is negative and ankle clonus is normal. ASSESSMENT: 1. Symptomatic lumbar radiculopathy. 2. Progressively worsening spinal stenosis of lumbar spine. 3. Displacement of lumbar intervertebral disk with radiculopathy. 4. Lumbosacral spondylosis with radiculopathy. 5. Lumbar degeneration. 6. Facet arthropathy of the lumbar spine. 7. Chronic intractable pain. PLAN: 1. The patient has returned today in followup visit where we have discussed at length the use of opioid medications for long-term pain control. This appears to be working well for this patient. As you are aware, she is not a candidate for surgical procedures and thus treatment had to remain more conservative. We have been utilizing fentanyl with good efficacy. The patient is having no side effects to the medication, no somnolence, no decreased mental acuity, disorientation, confusion, respiratory depression or constipation. She feels the medication is working beneficially reporting pain today no greater than 4/10. She wishes to continue the medication as currently prescribed. 2. We had a very long discussion with the patient about smoking cessation. We have discussed with this patient at every visit our desire to have her come off the cigarettes as this has been known to exacerbate chronic pain issues. The patient states at this age she is unwilling to do so and is not willing to make any changes. This is unfortunate as I do feel it would help her overall pain. 3. We reviewed the fact that opiate medications are being used to provide analgesia adequate to support activities of daily living, not attempting to achieve a specific pain score on the 0-10 Visual Analog Scale. The current opiate medications are providing sufficient analgesia to allow the patient to participate in activities of daily living. The patient is not exhibiting any aberrant behavior suggestive of drug diversion. The patient is not having any [facility] [address] [place] [address] PAIN MANAGEMENT CONSULTATION Name: SOHAMBRITTANY M [id number] Admission: 08/26/18 ������������������ Attend Phys: Cesar Kam DO Discharge: ������������������ Date of : 37 Report #: [id number] adverse reactions to medications. The patient is not suffering from daytime somnolence or mental acuity changes. The patient is managing opiate-induced constipation with appropriate nucg-qms-naixcos agents and dietary considerations. The patient was counseled on concern for caution with operating a motor vehicle while using opiate medications. A physical exam was performed and the patient's functional status was evaluated. All patients with back pain were advised against the bed rest greater than 4 days and were advised to return to normal activities. Pain score assessment was noted and the treatment plan was reviewed with the patient. All current medications, both prescribed and OTC were reviewed and reconciled on the electronic medical record. Tobacco screening was accomplished and smoking cessation was advised when indicated. BMI was noted and diet/exercise modification was recommended for all patients following outside normal parameters. I reviewed with the patient today their responsibilities to safeguard prescription medications, reviewed their responsibility to utilize medications only as prescribed by the physician. They are to seek and receive pain medications only from 1 physician group ( [facility]). They are to use 1 pharmacy and keep the clinic informed if they change pharmacies. Their responsibilities include making followup visits in a timely fashion and to avoid abrupt discontinuation of medication usage. Their responsibilities further include bringing their medications (bottles from the pharmacy with residual pills) to the visit for possible confirmation of pill counts and the patient understands it is their responsibility to submit to random drug screens to ensure both that the medications prescribed are present, and that no other controlled substances are present. All prescriptions provided today were generated electronically. 4. The patient was provided a prescription of fentanyl 25 mcg patch 1 patch q. 72 hours. I have given the patient #10 patches with releases of today, 4 weeks from today, 8 weeks from today. We have reviewed the patient's PDMP both on the [place] and [place] side. She is filling the prescriptions appropriately at a single pharmacy location. She is following the restrictions of our opioid contract. 5. The patient was provided a prescription of hydrocodone 5/325 one tab p.o. q. 6 hours p.r.n. for pain. I have given the patient #90 tablets, advised this patient to utilize the medication only when pain is intolerable. She uses no more than 90 tablets in a 3-month period. 6. We will see the patient back in followup visit in 3 months for medication management, earlier if interventional treatments are requested. ��������������������������������������������� <ELECTRONICALLY SIGNED> ���������������������������������������� By: Cesar Kam DO ��������������������������������������������� 09/01/18 1401 1121 1201 Cesar Kam DO /nt
== END ==
LOC: PAIN 09:49
DX: M48.061 Spinal stenosis, lumbar region without neurogenic claudication (principal); M51.16 Intervertebral disc disorders with radiculopathy, lumbar region; M47.27 Other spondylosis with radiculopathy, lumbosacral region; G89.29 Other chronic pain; M12.88 Other specific arthropathies, not elsewhere classified, other specified site

== ENCOUNTER → 2018-12-02 | Outpatient (CLI) | payer OTHER ==
[~2018-12-02] VITALS: Ht 152.4 cm; Wt 53.2 kg
[~2018-12-02] MED LIST changes: +METOPROLOL SUCC50 MG PO; +PROTONIX40 M1 PO; +VITAMIN D35000 UNI1 PO
[2018-12-02 09:54] VITALS: BP 112/57
--- NOTE | 2018-12-02 10:16 | NUR ---
Pain Clinic Assessment: 1. History of Osteoarthritis: none History of Rheumatoid Arthritis: none 2. Height: 5 ft. 0 in. 152.4 cm. Weight: 117.2 lb. oz. 53.161 kg. Patient's BMI: 22.9 3. Vital Signs: BP: 112/57 Pulse: 95 Resp: 14 Temp: 02 Sat: 100 ECG Mon: 4. Pain Intensity: 7 5. Fall Risk: Dizziness: N Needs help standing or walking: Y Fallen in the last 3 months: N Fall risk comments: 6. Patient on Blood Thinner: xeralto 7. History of Hypertension: Y 8. Opioid Therapy greater than 6 weeks: Y Opiate Contract Signed: 05/21/17 9. Risk Assessment Tool Provided: low 10. Functional Assessment Tool: 11. Recreational Drug Use: Never Drug Type: Tobacco Use: Current Every Day Smoker Tobacco Type: Amount or Packs/day: How Many Years: Alcohol Use: Yes Frequency: Special Occasions Quant:
--- NOTE | 2018-12-04 08:23 | HPC ---
[facility] [address] [place] [address] PAIN MANAGEMENT CONSULTATION Name: BRITTANY ROUSSEAU Room #: REG [facility]..#: [id number] Admission: 12/02/18 Attend Phys: Maureen Garrido Discharge: Date of : 37 Report #: [id number] THIS REPORT FOR: //name// CC: Maureen Donaldson DATE OF SERVICE: 12/02/2018 CHIEF COMPLAINT: Low back pain, left lower extremity pain and paresthesias. HISTORY OF PRESENT ILLNESS: The patient returns to the pain clinic today for refill of her medications that she uses to help treat her ongoing low back pain. She is rating her pain score at a 7/10 today, which is slightly elevated compared to visits in the past. She tells us that she had been out of her hydrocodone pills for about 3 weeks. She is unsure if she was shorted medication or it is because on some days she is having to take 1-1/2 pills. Her pain is worse with activity, walking as well as cooking, but her medication, if she is able to take it every day as scheduled along with her fentanyl patch, she does quite well as well as lying down and sitting. She denies any problems with constipation or daytime sleepiness. She would like refills of her medication today and possibly a slight increase. ALLERGIES: CIPRO. CURRENT LIST OF MEDICATIONS: Hydrocodone 5/325 daily, fentanyl patch 25 mcg, Xarelto 15 mg daily, losartan 100 mg daily, Toprol XL 25 mg daily and atorvastatin 40 mg at bedtime. PQRS: 1. She has known arthritic changes in her cervical, thoracic and lumbar spine; bilateral hands, knees, ankles and hips. Denies any rheumatoid arthritis. 2. Height is 5 feet, weight is 117, BMI is 22. 3. Vital signs, 112/57, pulse is 95, respirations 14, oxygen sat is 100. 4. Pain score is 7/10. 5. Denies dizziness. Does need help walking. She uses a cane, has not fallen in the last 3 months. 6. The patient is on Xarelto and also takes medicine for hypertension. 7. Opioid therapy is greater than 6 weeks; therefore, an opiate signed contract is on the chart. Her risk assessment tool is low. Functional assessment is 38/70. 8. Recreational drug use, she denies. She is a current smoker and does drink alcohol. According to the prescription monitoring system, the patient is filling appropriately of her medications. She is here in a timely fashion for her refill. There is a drug screen on the chart and we will repeat that at the next [address] [address] PAIN MANAGEMENT CONSULTATION Name: BRITTANY ROUSSEAU Room #: REG [facility] Castillo#: [id number] Admission: 12/02/18 Attend Phys: Maureen Garrido Discharge: Date of : 37 Report #: [id number] visit. PHYSICAL EXAMINATION: GENERAL: This is a well-developed, well-nourished, well-hydrated, kyphotic and scoliotic 83-year-old female who appears her stated age, placing her current pain score at 7/10. HEENT: Normocephalic, atraumatic. Extraocular eye muscles are intact. Mucous membranes are moist. EXTREMITIES: No clubbing, no cyanosis, no edema. MUSCULOSKELETAL: Again noted she is kyphotic and scoliotic curvature of her thoracic, lumbar spine. Seated straight leg raising is negative. Gait is antalgic. Muscle bulk and tone are symmetrical when compared to the left lower extremity. She has tenderness over her lumbar spine. ASSESSMENT: 1. Symptomatic lumbar radiculopathy. 2. Progressively worsened spinal stenosis of the lumbar spine. 3. Displacement of lumbar intervertebral disk with radiculopathy. 4. Lumbar degeneration. 5. Lumbosacral spondylosis with radiculopathy. 6. Chronic intractable pain. 7. Facet arthropathy of the lumbar spine. 8. Complex medical management under terms of written opioid agreement. We reviewed the fact that opiate medications are being used to provide analgesia adequate to support activities of daily living, not attempting to achieve a specific pain score on the 0-10 Visual Analog Scale. The current opiate medications are providing sufficient analgesia to allow the patient to participate in activities of daily living. The patient is not exhibiting any aberrant behavior suggestive of drug diversion. The patient is not having any adverse reactions to medications. The patient is not suffering from daytime somnolence or mental acuity changes. The patient is managing opiate-induced constipation with appropriate npxs-rjd-eskbfzt agents and dietary considerations. The patient was counseled on concern for caution with operating a motor vehicle while using opiate medications. A physical exam was performed and the patient's functional status was evaluated. All patients with back pain were advised against the bed rest greater than 4 days and were advised to return to normal activities. Pain score assessment was noted and the treatment plan was reviewed with the patient. All current medications, both prescribed and OTC were reviewed and reconciled on the electronic medical record. Tobacco screening was accomplished and smoking cessation was advised when indicated. BMI was noted and diet/exercise modification was recommended for all patients following outside normal parameters. [address] [address] PAIN MANAGEMENT CONSULTATION Name: BRITTANY ROUSSEAU Room #: REG [facility]#: [id number] Admission: 12/02/18 Attend Phys: Maureen Garrido Discharge: Date of : 37 Report #: [id number] I reviewed with the patient today their responsibilities to safeguard prescription medications, reviewed their responsibility to utilize medications only as prescribed by the physician. They are to seek and receive pain medications only from 1 physician group ( [facility]). They are to use 1 pharmacy and keep the clinic informed if they change pharmacies. Their responsibilities include making followup visits in a timely fashion and to avoid abrupt discontinuation of medication usage. Their responsibilities further include bringing their medications (bottles from the pharmacy with residual pills) to the visit for possible confirmation of pill counts and the patient understands it is their responsibility to submit to random drug screens to ensure both that the medications prescribed are present, and that no other controlled substances are present. All prescriptions provided today were generated electronically. PLAN: 1. We discussed treatment options with the patient today. The patient is requesting an increase in her hydrocodone amount of pills. She finds that she has been out for 3 months. Someday, she does need to take 1-1/2 or 2 pills a day. I did review the CDC guidelines with her. With her fentanyl patch and her hydrocodone use, according to the CDC guidelines, she is at 65 morphine mEq a day. We try to follow their guidelines and keep our patients at 50 or below. She is currently above that, but under the 90 morphine mEq that the CDC initially recommended. I encouraged the patient to try Tylenol Extra Strength in the middle of the afternoon in place of a hydrocodone pill or to split her hydrocodone in half and see if she has benefit from this. If not, we will discuss it at her next visit. The patient is agreeable with this plan of care. The son is present here as well today. 2. We also discussed with the patient counting her medications at the pharmacy to make sure she did get her full 90 pills prior to leaving the facility and also safeguarding her medication, so that no one has access to her hydrocodone pills. 3. Scripts given today for fentanyl 25 mcg, #10, for today for an 8-week release and hydrocodone 5/325, #90. 4. The patient is seen in collaboration with Dr. Cesar Kam who did see the patient as well today. The patient will return in followup in 3 months. <ELECTRONICALLY SIGNED> By: Maureen Garrido 12/04/18 0823 1041 1239 Maureen Garrido /nt
== END ==
LOC: PAIN 07-15 10:22
DX: M48.061 Spinal stenosis, lumbar region without neurogenic claudication (principal); M51.16 Intervertebral disc disorders with radiculopathy, lumbar region; M12.88 Other specific arthropathies, not elsewhere classified, other specified site; M47.27 Other spondylosis with radiculopathy, lumbosacral region; G89.4 Chronic pain syndrome; Z88.8 Allergy status to other drugs, medicaments and biological substances; Z79.899 Other long term (current) drug therapy

== ENCOUNTER 2018-12-26 21:56 | Inpatient (IN) | payer OTHER ==
[~2018-12-26] VITALS: Ht 152.4 cm; Wt 52.3 kg
[~2018-12-26 21:56] MED LIST changes: -METOPROLOL SUCC50 MG PO; -PROTONIX40 M1 PO; -VITAMIN D35000 UNI1 PO
[2018-12-26] MEDS ORDERED: VITAMIN D35000 UNI1 PO (22:36)
[2018-12-26 22:46] LABS: ABSOLUTE NEUTROPHILS 2.7 thou/uL (1.4-8.2); BASOPHILS 1.3 % (0.0-2.0); EOSINOPHILS 4.7 % (0.0-3.0); HEMATOCRIT 37.9 % (37.0-47.0); HEMOGLOBIN 12.4 gm/dL (12.0-15.0); LYMPHOCYTES 52.2 % (24.0-44.0); MCH 29.9 pg (26.0-34.0); MCHC 32.8 g/dL (28.0-37.0); MONOCYTES 8.9 % (1.0-8.0); PLATELET COUNT 269 thou/uL (150-400); POLYS 32.9 % (36.0-66.0); RBC 4.16 mil/uL (4.20-5.00); RDW 14.2 % (10.5-14.5); WBC 8.3 thou/uL (4.0-11.0)
[2018-12-26 22:50] LABS: CREATININE 0.9 mg/dL (0.6-1.0); POTASSIUM 4.4 mmol/L (3.5-5.1)
[2018-12-26 23:00] LABS: ALBUMIN 3.3 g/dL (3.4-5.0); TOTAL PROTEIN 7.2 g/dL (6.4-8.2); TROPONIN-I 0.09 ng/mL (<0.06)
[2018-12-27] VITALS (10 sets, daily range): BP systolic 117–129; BP diastolic 45–65
[2018-12-27 06:48] LABS: CHOLESTEROL 95 mg/dL (<200); HDL CHOLESTEROL 34 mg/dL (>40); LDL CHOLESTEROL 41 mg/dL (<100); TC:HDL 2.8 Ratio (Not establshd); TRIGLYCERIDE 102 mg/dL (<150); VLDL 20 mg/dL (<40)
--- NOTE | 2018-12-27 06:57 | NUR ---
patients cares was assumed at arrival from er. patient came to us with chest pain. labs were done and scans were done. patient was admitted to the floor and patient was assessed. consults were called to rasheed. hourly rounding was done. the bed is in a low and locked position.
--- NOTE | 2018-12-27 13:21 | EKG ---
[place] [address] [place] [facility] [place] [address] ELECTROCARDIOGRAM REPORT Name: SOHAMBRITTANY Levin Room #: 215-P ADM IN M.R.#: [id number] Admission: 12/27/18 Attend Phys: Hill Stephen MD Discharge: Date of : 37 Report #: [id number] THIS REPORT FOR: //name// [facility] ED Test Date: 2018-12-26 Test Time: 22:02:49 Pat Name: BRITTANY ROUSSEAU Department: Room: 215 P Gender: F Guide Dog Mobility Instructor: Haresh OLIVERA RN : 1935 Requested By: Arielle Almeida Order Number: [id number] MD: Shakeel King Measurements Intervals Stevens Rate: 92 P: 45 RI: 119 QRS: -12 QRSD: 100 T: 25 QT: 363 QTc: 450 Interpretive Statements Sinus rhythm Multiple ventricular premature complexes Borderline short RI interval Compared to ECG 01/14/2016 11:35:13 Ventricular premature complex(es) now present Electronically Signed On 12-27-2018 13:21:11 ENTRY LEVEL PROJECT COORDINATOR by Shakeel King [email or web address] <ELECTRONICALLY SIGNED> By: Shakeel King MD, FAC 12/27/18 1321 01 01 Shakeel King MD, [facility] /EPI
--- NOTE | 2018-12-27 13:23 | EKG ---
[address] [place] [address] ELECTROCARDIOGRAM REPORT Name: BRITTANY ROUSSEAU Room #: 215-P ADM IN M.R.#: [id number] Admission: 12/27/18 Attend Phys: Hill Stephen MD Discharge: Date of : 37 Report #: [id number] THIS REPORT FOR: //name// [facility] Test Date: 2018-12-27 Test Time: 09:01:28 Pat Name: BRITTANY ROUSSEAU Department: Room: 215 P Gender: F Market Analyst: Siva CAMPBELL : 1935 Requested By: Hill Stephen Order Number: [id number] MD: Shakeel King Measurements Intervals Harper Rate: 88 P: 58 MD: 121 QRS: 13 QRSD: 95 T: 44 QT: 371 QTc: 449 Interpretive Statements Sinus rhythm Normal tracing Compared to ECG 01/14/2016 11:35:13 Premature ventricular complexes no longer present Electronically Signed On 12-27-2018 13:23:23 SANITATION INSPECTOR by Shakeel King [email or web address] <ELECTRONICALLY SIGNED> By: Shakeel King MD, [facility] 12/27/18 1323 09 09 Shakeel King MD, [facility] /EPI
--- NOTE | 2018-12-27 17:04 | NUR ---
RECEIVED PT'S CARE AROUND 729; PT. ON BED RESTING WITH EYES CLOSED; ANSWERED BACK TO NAME; AROUND 829 PT. C/O CP; PHYSICIAN NOTIFIED; NITRO SUBLIGUAL GIVEN; NO DECREASE PAIN; EKG ORDERED PER PHYSICIAN; SR; HOSPITALIST NOTIFIED; ORDERS RECEIVED; CRYOGENICS REPAIRER AT THE BED SIDE AFTER EKG; ORDERS RECEIVED; VS WNL; AFTER GIVING GI COCKTEL PT. C/O NAUSEA & VOMITING; ST. "I CANNOT SWALLOW"; ASSESSED PT. ABLE TO SWALLOW SALIVA; O2 SAT 97%; HOSPITALIST ROUNDING; NOTIFIED; AM MEDICATIONS GIVEN LATER ON THE DAY; ABLE TO SWALLOW MEDICATION WITHOUT COUGHING; VS WNL; ST. DECREASE CP; DIET CHANGE TO HH/ LOW 2 GM NA PER PHYSICIAN VERBAL ORDER; ABLE TO HAVE LUNCH WITHOUT VOMITING; NO C/O NAUSEA; ST. DECREASE PAIN THROUGH THE AFTERNOON; MONITORING; WILL PASS ON REPORT;
[2018-12-28 04:44] VITALS: BP 124/68
[2018-12-28 04:50] LABS: HEMATOCRIT 37.1 % (37.0-47.0); HEMOGLOBIN 12.1 gm/dL (12.0-15.0); MCH 29.6 pg (26.0-34.0); MCHC 32.6 g/dL (28.0-37.0); MCV 90.6 fL (80.0-100.0); RBC 4.1 mil/uL (4.20-5.00); RDW 14.3 % (10.5-14.5); WBC 7.3 thou/uL (4.0-11.0)
[2018-12-28 05:09] LABS: CALCIUM 8.8 mg/dL (8.5-10.1); CREATININE 0.9 mg/dL (0.6-1.0)
--- NOTE | 2018-12-28 05:14 | NUR ---
ASSUMED PT CARE AT 1900. PT IS ALERT AND ORIENTED. NO SIGN OF DISTRESS NOTED. PT COMPLAINS OF CHEST DISCOMFORT. MED ADMINISTERED. FALL PRECAUTION IN PLACE. ASSESSMENT COMPLETED AND DOCUMENTED. SCHEDULED MEDS ADMINISTERED TO PT. TOLERATED PO INTAKE. PT IS STABLE THROUGHOUT THE NIGHT. DENIES ANY FURTHER NEEDS AT THIS TIME.
[2018-12-28 08:00] VITALS: BP 121/66
[2018-12-28 16:00] VITALS: BP 110/59
--- NOTE | 2018-12-28 16:06 | 2DMMODE ---
[facility] [address] [place] [address] 2 D/M-MODE ECHOCARDIOGRAM Name: SOHAMBRITTANY M Room #: 215-P ADM IN M.R.#: [id number] Admission: 12/27/18 Attend Phys: Hill Stephen, Discharge: Date of : 39 Report #: [id number] THIS REPORT FOR: //name// APPROVED REPORT Study performed: 12/28/2018 14:36:07 EXAM: Comprehensive 2D, Doppler, and color-flow Echocardiogram Patient Location: Echo lab Room #: [facility] Status: routine BSA: 1.48 HR: 85 bpm BP: 131/63 mmHg Rhythm: NSR Other Information Study Quality: Adequate Indications Cardiomyopathy Chest Pain Hypertension/HDD Tobacco abuse 55 years, HLD, Hx PE's 2D Dimensions RVDd: 28.08 mm IVSd: 7.72 (7-11mm) LVOT Diam: 20.75 (18-24mm) LVDd: 46.18 mm PWd: 9.07 (7-11mm) LVDs: 35.61 (25-40mm) Aortic Root: 26.42 mm IVC: 16.00 mm Volumes Left Atrial Volume (Systole) Single Plane 4CH: 31.04 mL Single Plane 2CH: 41.86 mL LA ESV Index: 27.00 mL/m2 Aortic Valve AoV Peak Jameel.: 1.16 m/s AO Peak Gr.: 5.39 mmHg LVOT Max P.45 mmHg LVOT Max V: 0.60 m/s MAIA Vmax: 1.76 cm2 Mitral Valve [facility] [address] [place] [address] 2 D/M-MODE ECHOCARDIOGRAM Name: BRITTANY ROUSSEAU Room #: 215-P [facility]#: [id number] Admission: 12/27/18 Attend Phys: Hill Stephen, Discharge: Date of : 39 Report #: [id number] E/A Ratio: 0.4 MV Decel. Time: 176.95 ms MV E Max Jameel.: 0.42 m/s MV A Jameel.: 0.96 m/s MV PHT: 51.31 ms IVRT: 145.33 ms Pulmonary Valve PV Peak Jameel.: 0.53 m/s PV Peak Gr.: 1.11 mmHg Tricuspid Valve TR Peak Jameel.: 3.11 m/s RAP Estimate: 5.00 mmHg TR Peak Gr.: 38.59 mmHg PA Pressure: 44.00 mmHg Left Ventricle The left ventricle is normal size. There is global hypokinesis of the left ventricle. There is normal left ventricular wall thickness. Left ventricular systolic function is moderately decreased. LVEF 40%. Mild diastolic dysfunction is present (impaired relaxation pattern). Right Ventricle The right ventricle is normal size. The right ventricular systolic function is normal. Atria The left atrium size is normal. The right atrium size is normal. Aortic Valve Mild aortic valve calcification No aortic regurgitation is present. There is no aortic valvular stenosis. Mitral Valve Mild mitral annular calcification Mild mitral regurgitation. No evidence of mitral valve stenosis. Tricuspid Valve The tricuspid valve is normal in structure. Trace tricuspid regurgitation. PAP is estimated at 44 mmHg. Pulmonic Valve The pulmonary valve is normal in structure. There is no pulmonic valvular regurgitation. [facility] [place] [address] 2 D/M-MODE ECHOCARDIOGRAM Name: BRITTANY ROUSSEAU Room #: 215-P ADM IN M.R.#: [id number] Admission: 12/27/18 Attend Phys: Hill Stephen, Discharge: Date of : 39 Report #: [id number] Great Vessels The aortic root is normal in size. IVC is normal in size and collapses >50% with inspiration. Pericardium There is no pericardial effusion. <Conclusion> Left ventricular systolic function is moderately decreased. There is global hypokinesis of the left ventricle. LVEF 40%. Mild diastolic dysfunction Mild aortic valve calcification. No aortic regurgitation or stenosis. Mild mitral annular calcification. Mild mitral regurgitation. Trace tricuspid regurgitation. Pulmonary artery pressure estimated at 44 mmHg. There is no pericardial effusion. <ELECTRONICALLY SIGNED> By: Shakeel King MD, [facility] 12/28/18 1606 05 160 Shakeel King MD, FACC /INF
--- NOTE | 2018-12-28 16:11 | NUR ---
met with patient who reports she lives at home and son resides in [facility] above. All needs on one level for patient. she uses a walker at home. She has 5 children all supportive and avail. PCP Dr Bennett. She no longer drives and has family assist with driving. She has cleaning person that cleans home. She is independent with cooking or reports sometimes son cooks and brings meal down and they eat together. [employer] following for dc planning.
[2018-12-28 20:07] VITALS: BP 108/43
--- NOTE | 2018-12-28 20:12 | NUR ---
RECEIVED PT'S CARE AROUND 0730; PT. ON BED RESTING WITH EYES CLOSED; REGULAR CHEST RISING ASSESSED; STRESS ORDERS; PT. NPO SINCE BREAKFAST; DURING ASSESSMENT AM MEDICATIONS GIVEN; CHECK EMAR; PT. NOTIFIED ABOUT PROCEDURE ST. UNDERSTANDING; NO C/O CP; GONE FOR PROCEDURE ABOUT 1100; BACK TO FLOOR AROUND 1300; THROUGH THE DAY NO C/O CP; PER GI PT. NPO AT MIDNIGHT DUE TO POSSIBLE PROCEDURE IN THE MORNING; PASSED ON REPORT; ASSESSMENT CHARGED; FOLLOWING POC; PASSED ON REPORT;
--- NOTE | 2018-12-29 04:44 | NUR ---
ASSUMED PT CARE AT 1900 WITH NO SIGN OF DISTRESS NOTED IN PT, PT IS ALERT AND ORIENTED. NO FAMILY AT BEDSIDE. PT IS AWAKE. ASSESSMENT COMPLETED AND DOCUMENTED. FALL PRECAUTION IN PLACE. SCHEDULED MEDS ADMINISTERED TO PT. NO SIGN OF DISTRESS NOTED IN PT. PT IS STABLE THROUGHOUT THE NIGHT. NO COMPLAINTS OF CHEST PAIN. DENIES SANTIAGO FURTHER NEEDS AT THIS TIME. CONTINUE TO MONITOR.
[2018-12-29 05:28] VITALS: BP 117/49
[2018-12-29 08:26] VITALS: BP 152/67
[2018-12-29] MEDS ORDERED: METOPROLOL SUCC50 MG PO (11:14)
[2018-12-29] MEDS ORDERED: PROTONIX40 M1 PO (11:14)
[2018-12-29 12:00] VITALS: BP 152/67
[2018-12-29 12:18] VITALS: BP 113/89
--- NOTE | 2018-12-29 12:26 | NUR ---
PT CARE ASSUMED APPROX 0715. ASSESSMENTS CHARTED. PT DENIES PAIN AND SOA. VSS. DESIRED TO DO EGD OUTPT. ARRANGEMENTS MADE PER GI. NO FURTHER TESTING NEEDED SO PT APPROVED FOR DISCHARGE AT THIS TIME. DISCHARGE INSTRUCTIONS AND POST HOSPITAL CARE/F/U REVIEWED WITH PT AND PT'S SON. BOTH DENY QUESTIONS OR CONCERNS REGARDING EDUCATION PROVIDED. SON TO PROVIDE TRANSPORTATION HOME. IV OUT, TELE BOX OFF. HOSPITAL STAFF TO ESCORT PT OUT TIMELY.
[2018-12-29 13:34] VITALS: BP 152/67
--- NOTE | 2018-12-29 13:37 | NUR ---
FAXED REFERRAL TO [facility] SPOKE WITH SHI IN ADM SHE RECEIVED REFERRAL AND CAN ACCEPT. FAXED DC ORDERS/SUMMARY RECEIVED CONFIRMATION AND SPOKE WITH SHI SHE WILL NOTIFY PT TIME OF VISITS.
--- NOTE | 2018-12-29 16:44 | NUR ---
Patient to dc home with HH she has no preference of HH agency. Referral to [facility] who is accepting. patient dc prior to rec phone number on her dc instruction. Sp with patient at home and gave information.
== END 2018-12-29 12:39 | disposition home health service (06) | DRG 206 ==
LOC: ER 21:56 → 2N 12-27 01:07 → ENTRNSPT 12-29 12:26 → EDTRNSPTSTS 12-29 12:28 → 2N 12-29 12:39
PROVIDERS: Emergency Medicine Emergency Medical Services; Nurse Practitioner Acute Care; ADMIT Internal Medicine
DX: M94.0 Chondrocostal junction syndrome [Tietze] (principal); I42.9 Cardiomyopathy, unspecified; I47.2 Ventricular tachycardia; K22.4 Dyskinesia of esophagus; I10 Essential (primary) hypertension; E78.5 Hyperlipidemia, unspecified; F17.210 Nicotine dependence, cigarettes, uncomplicated; I48.0 Paroxysmal atrial fibrillation; F32.9 Major depressive disorder, single episode, unspecified; R13.10 Dysphagia, unspecified; R79.89 Other specified abnormal findings of blood chemistry; Z53.29 Procedure and treatment not carried out because of patient's decision for other reasons; Z79.899 Other long term (current) drug therapy; Z88.8 Allergy status to other drugs, medicaments and biological substances; Z79.01 Long term (current) use of anticoagulants; Z86.711 Personal history of pulmonary embolism; Z86.73 Personal history of transient ischemic attack (TIA), and cerebral infarction without residual deficits; Z82.3 Family history of stroke
CPT/HCPCS: 10081

== ENCOUNTER → 2019-03-23 | Outpatient (CLI) | payer OTHER ==
[~2019-03-23] VITALS: Ht 152.4 cm; Wt 50.8 kg
[~2019-03-23] MED LIST changes: +DURAGESIC1 EAC4 TOP; +LOPRESSOR50 MG PO; +METOPROLOL SUCC50 MG PO; +PROTONIX40 M1 PO; +PROTONIX40 M2 PO; +VITAMIN D35000 UNI1 PO
[2019-03-23 12:47] VITALS: BP 122/58
--- NOTE | 2019-03-23 12:59 | NUR ---
Pain Clinic Assessment: 1. History of Osteoarthritis: SPINE History of Rheumatoid Arthritis: none 2. Height: 5 ft. 0 in. 152.4 cm. Weight: 112.0 lb. oz. 50.803 kg. Patient's BMI: 21.9 3. Vital Signs: BP: 122/58 Pulse: 92 Resp: 15 Temp: 02 Sat: 97 ECG Mon: 4. Pain Intensity: 4 5. Fall Risk: Dizziness: N Needs help standing or walking: N Fallen in the last 3 months: N Fall risk comments: 6. Patient on Blood Thinner: xeralto 7. History of Hypertension: Y 8. Opioid Therapy greater than 6 weeks: Y Opiate Contract Signed: 05/21/17 9. Risk Assessment Tool Provided: 0 LOW 10. Functional Assessment Tool: 11. Recreational Drug Use: Never Drug Type: Tobacco Use: Current Every Day Smoker Tobacco Type: Cigarettes Amount or Packs/day: 1 How Many Years: 50 Alcohol Use: Yes Frequency: Special Occasions Quant:
--- NOTE | 2019-03-24 08:29 | HPC ---
[facility] [address] [place] [address] PAIN MANAGEMENT CONSULTATION Name: BRITTANY ROUSSEAU Room #: REG [facility].#: [id number] Admission: 03/23/19 Attend Phys: Maureen Garrido Discharge: Date of : 39 Report #: [id number] THIS REPORT FOR: cc: Cesar Donaldson James A. DO Hocker, Amanda CNS ~ THIS REPORT FOR: //name// CC: Maureen Donaldson DATE OF SERVICE: 03/23/2019 CHIEF COMPLAINT: Low back pain, left lower extremity pain and paresthesias. HISTORY OF PRESENT ILLNESS: This is an 84-year-old female who returns to the pain clinic today for refill of her medications. She reports a pain score 4/10 today in her mid-thoracic area on the left side. It does radiate into her lumbar spine. It is a sharp pain. She says with activity, such as cooking and walking. She feels that the medications are beneficial as well as sitting and lying down. She would like to have an extra hydrocodone in the afternoon when she reports that her pain does return after she awakens from her afternoon nap. She does though tell me that she has no energy and no appetite. She spends most of her day watching television, resting in the chair. Today, she would like a refill of her Duragesic patches. She denies any problems with constipation issues. ALLERGIES: CIPRO. CURRENT LIST OF MEDICATIONS: Hydrocodone 5/325 one daily, fentanyl 25 mcg patch every 72 hours, Protonix, Lopressor, vitamin D, Xarelto, losartan, and Lipitor. PQRS: 1. 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 Denies any rheumatoid arthritis. 2. Height is 5 feet, weight is 112, BMI is 21. 3. Vital signs, blood pressure 122/58, pulse is 92, respirations 16, and oxygen sat is 97. 4. Pain score is 4/10. 5. Denies dizziness, does not need help walking or standing, has not fallen in the last 3 months. 6. The patient is on Xarelto as well as medicines for hypertension. 7. Opioid therapy is greater than 6 weeks; therefore, an opioid signed contract is on the chart. Risk assessment tool is low. Functional assessment is 43/70. 8. Recreational drug use, she denies. She currently smokes a pack of cigarettes a day and drinks alcohol. [address] [address] PAIN MANAGEMENT CONSULTATION Name: BRITTANY ROUSSEAU Room #: REG [facility] Jonathan#: [id number] Admission: 03/23/19 Attend Phys: Maureen Garrido Discharge: Date of : 39 Report #: [id number] According to the prescription monitoring system, the patient is filling appropriately. She is due to fill her medications today. Her current morphine mEq according to the CDC guidelines is 65 MME, therefore she should be seen every [address] Kam does allow her every 3 months visits. PHYSICAL EXAMINATION: GENERAL: This is alert and orientated, well-developed kyphotic, scoliotic 84-year-old female who appears her stated age, placing her current pain score is 4/10. HEENT: Normocephalic, atraumatic. Extraocular eye muscles are intact. Mucous membranes are moist. MUSCULOSKELETAL: She has a kyphotic and scoliotic curvature in her thoracic and lumbar spine. Pain is greater on the left thoracic area than the right. Seated straight leg raising is negative. Her gait is slightly antalgic. Lower extremity strength judged to be 4/5, but deconditioned. ASSESSMENT: 1. Symptomatic lumbar radiculopathy. 2. 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 3. Lumbar degeneration. 4. Lumbar spondylosis with radiculopathy. 5. Scoliosis. 6. Chronic intractable pain. 7. Complex medical management under terms of written opioid agreement. We reviewed the fact that opiate medications are being used to provide analgesia adequate to support activities of daily living, not attempting to achieve a specific pain score on the 0-10 Visual Analog Scale. The current opiate medications are providing sufficient analgesia to allow the patient to participate in activities of daily living. The patient is not exhibiting any aberrant behavior suggestive of drug diversion. The patient is not having any adverse reactions to medications. The patient is not suffering from daytime somnolence or mental acuity changes. The patient is managing opiate-induced constipation with appropriate [id number] agents and dietary considerations. The patient was counseled on concern for caution with operating a motor vehicle while using opiate medications. PLAN: 1. We discussed treatment options with the patient today. The patient is requesting an increase in her hydrocodone, wanting to take 2 pills a day. I explained to her that we would be able to do that if we decrease her fentanyl patch. She is complaining of no energy and no appetite. I believe that if we decrease her fentanyl patch slightly to 12 mcg, this maybe improves some of her energy; therefore, we could allow her 2 hydrocodone a day. The patient is leery about doing this. She does not want to increase her pain. She would like to [address] [address] PAIN MANAGEMENT CONSULTATION Name: BRITTANY ROUSSEAU Room #: REG [facility] Castillo#: [id number] Admission: 03/23/19 Attend Phys: Maureen Garrido Discharge: Date of : 39 Report #: [id number] continue at her current level. I explained to her according to the CDC guidelines, she is at 65 morphine mEq, so therefore we would not be able to increase her hydrocodone without lowering her patch. 2. Dr. Cesar Kam was collaborated about this discussion and agreed. We will continue her on 25 mcg patches every 72 hours, #10 for today for an 8-week release and 1 hydrocodone 5/325 a day. The patient encouraged to break these in half if she feels like she needs pain medicine in the morning and the afternoon. These will be sent electronically to her pharmacy. 3. The patient is seen in collaboration with Dr. Cesar Kam. The patient will return in followup in 3 months. <ELECTRONICALLY SIGNED> By: Maureen Garrido 03/24/19 0829 1334 35 Maureen Garrido /melissa
== END ==
LOC: PAIN 06:53
DX: M47.26 Other spondylosis with radiculopathy, lumbar region (principal); M48.061 Spinal stenosis, lumbar region without neurogenic claudication; M51.16 Intervertebral disc disorders with radiculopathy, lumbar region; M41.80 Other forms of scoliosis, site unspecified; Z88.8 Allergy status to other drugs, medicaments and biological substances; Z79.899 Other long term (current) drug therapy

== ENCOUNTER → 2019-07-20 | Outpatient (CLI) | payer OTHER ==
[~2019-07-20] VITALS: Ht 152.4 cm; Wt 50.3 kg
[2019-07-20 10:19] VITALS: BP 126/75
--- NOTE | 2019-07-20 10:25 | NUR ---
Pain Clinic Assessment: 1. History of Osteoarthritis: SPINE HANDS History of Rheumatoid Arthritis: Not Applicable 2. Height: 5 ft. 0 in. 152.4 cm. Weight: 110.8 lb. oz. 50.258 kg. Patient's BMI: 21.6 3. Vital Signs: BP: 126/75 Pulse: 102 Resp: 18 Temp: 02 Sat: 97 ECG Mon: 4. Pain Intensity: 4 5. Fall Risk: Dizziness: N Needs help standing or walking: Y Fallen in the last 3 months: N Fall risk comments: 6. Patient on Blood Thinner: xeralto 7. History of Hypertension: Y 8. Opioid Therapy greater than 6 weeks: Y Opiate Contract Signed: 05/21/17 9. Risk Assessment Tool Provided: 0 LOW 10. Functional Assessment Tool: 11. Recreational Drug Use: Never Drug Type: Tobacco Use: Current Every Day Smoker Tobacco Type: Cigarettes Amount or Packs/day: 1 PACK DAY How Many Years: Alcohol Use: Yes Frequency: Special Occasions Quant: 1
--- NOTE | 2019-07-20 14:22 | HPC ---
[facility] [address] [address] PAIN MANAGEMENT CONSULTATION Name: BRITTANY ROUSSEAU Room #: REG [facility] M..#: [id number] Admission: 07/20/19 Attend Phys: Maureen Garrido Discharge: Date of : 39 Report #: [id number] THIS REPORT FOR: cc: Cesar Donaldson James A. DO Maureen Garrido ~ CC: Cesar Kam DO DATE OF SERVICE: 07/20/2019 CHIEF COMPLAINT: Low back pain, left lower extremity pain and paresthesias. HISTORY OF PRESENT ILLNESS: This is an 84-year-old female who returns to the pain clinic today for treatment of her mid and low back pain. Today, she is reporting a pain score of 4/10. It is an aching, constant pain that is worse with walking and activity and doing activities of daily living around the house such as cooking. She feels that the medication as well as sitting and lying down are beneficial. She feels that the fentanyl patch has been very beneficial in keeping her pain under control. She takes an average of 1 hydrocodone first thing in the morning and finds that beneficial. She denies any problems with constipation or daytime somnolence as a result of her medications. Today, she would like refills from Dr. Kam of her medicines. ALLERGIES: CIPRO. CURRENT LIST OF MEDICATIONS: Fentanyl patch 25 mcg every 72 hours, hydrocodone p.r.n., Protonix, Lopressor, vitamin D, Xarelto, losartan, Lipitor. PQRS: 1. 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 Denies any rheumatoid arthritis. 2. Height is 5 feet, weight is 110. BMI is 21. 3. Vital signs 126/75, pulse is 102, respirations 18, oxygen sat is 97%. 4. Pain score is 4/10. 5. Denies dizziness. Does use a walker and has not fallen in the last 3 months. 6. She is on Xarelto for blood thinner as well as medicines for hypertension. 7. Opioid therapy is greater than 6 weeks. Therefore, an opioid signed contract is on the chart. Her risk assessment is low. Functional assessment is 43/70. 8. Recreational drug use, she denies. She is a current smoker of 1 pack of cigarettes a day and occasionally drinks alcohol. According to the prescription monitoring system, her morphine mEq per day is 65 MMEs according to the CDC guidelines. We will check a random drug screen on her [address] [address] PAIN MANAGEMENT CONSULTATION Name: BRITTANY ROUSSEAU Room #: REG [facility] Castillo#: [id number] Admission: 07/20/19 Attend Phys: Maureen Garrido Discharge: Date of : 39 Report #: [id number] at her next visit. PHYSICAL EXAMINATION: GENERAL: This is a well-developed, well-nourished, alert and orientated 84-year-old who appears her stated age, placing her current pain score at 4/10 today. HEENT: Normocephalic, atraumatic. Extraocular eye muscles are intact. She is wearing a mask. MUSCULOSKELETAL: She has a kyphotic and scoliotic curvature of her thoracic and lumbar spine. Seated straight leg raising is negative. She does have a slightly antalgic gait using a walker. She has decreased strength in her lower extremities due to the deconditioning. ASSESSMENT: 1. Symptomatic lumbar radiculopathy. 2. 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 3. Lumbar degeneration. 4. Scoliosis. 5. Lumbar spondylosis with radiculopathy. 6. Chronic intractable pain. 7. Complex medical management under terms of written opioid agreement. PLAN: 1. We discussed treatment options with the patient today. The patient finds her medications very beneficial. She feels that the fentanyl patch has significantly decreased her pain overall. We will have Dr. Cesar Kam send this electronically for refills of 25 mcg #10 for today, 4-week and 8-week release. 2. We will continue her on her hydrocodone 5/325, #90. This typically lasts for the entire 3 months as well, averaging 1 pill a day. 3. The patient denies problems with constipation or daytime sleepiness as a result of her medications. The patient is seen today in collaboration with Dr. Cesar Kam and she will return in followup in 3 months. <ELECTRONICALLY SIGNED> By: Maureen Garrido 07/20/19 1422 1045 [id number] Maureen Garrido /nt
== END ==
LOC: PAIN 03-16 06:40
PROVIDERS: ATTEND Clinical Nurse Specialist Adult Health
DX: M47.26 Other spondylosis with radiculopathy, lumbar region (principal); M51.16 Intervertebral disc disorders with radiculopathy, lumbar region; M19.042 Primary osteoarthritis, left hand; M19.041 Primary osteoarthritis, right hand; M48.061 Spinal stenosis, lumbar region without neurogenic claudication; Z79.899 Other long term (current) drug therapy; Z79.891 Long term (current) use of opiate analgesic

== ENCOUNTER → 2019-08-24 | Outpatient (CLI) | payer OTHER | LOC: SJCVCIMAG 12:35 | PROVIDERS: ATTEND Internal Medicine Cardiovascular Disease | DX: I08.1 Rheumatic disorders of both mitral and tricuspid valves (principal); R94.31 Abnormal electrocardiogram [ECG] [EKG]; I27.20 Pulmonary hypertension, unspecified; I65.23 Occlusion and stenosis of bilateral carotid arteries; E78.00 Pure hypercholesterolemia, unspecified; J44.9 Chronic obstructive pulmonary disease, unspecified; R53.82 Chronic fatigue, unspecified; F17.210 Nicotine dependence, cigarettes, uncomplicated; Z79.899 Other long term (current) drug therapy; Z79.01 Long term (current) use of anticoagulants; Z86.711 Personal history of pulmonary embolism ==

== ENCOUNTER → 2019-10-27 | Outpatient (CLI) | payer OTHER ==
[~2019-10-27] VITALS: Ht 152.4 cm; Wt 51.9 kg
[2019-10-27 10:27] VITALS: BP 110/56
--- NOTE | 2019-10-27 10:41 | NUR ---
Pain Clinic Assessment: 1. History of Osteoarthritis: SPINE HANDS History of Rheumatoid Arthritis: Not Applicable 2. Height: 5 ft. 0 in. 152.4 cm. Weight: 114.4 lb. oz. 51.891 kg. Patient's BMI: 22.3 3. Vital Signs: BP: 110/56 Pulse: 83 Resp: 14 Temp: 02 Sat: 98 ECG Mon: 4. Pain Intensity: 9 standing,walking 5. Fall Risk: Dizziness: N Needs help standing or walking: Y Fallen in the last 3 months: N Fall risk comments: 6. Patient on Blood Thinner: xarelto 7. History of Hypertension: Y 8. Opioid Therapy greater than 6 weeks: Y Opiate Contract Signed: 05/21/17 9. Risk Assessment Tool Provided: 0 LOW 10. Functional Assessment Tool: 11. Recreational Drug Use: Never Drug Type: Tobacco Use: Current Every Day Smoker Tobacco Type: Cigarettes Amount or Packs/day: 1 pack How Many Years: Alcohol Use: Yes Frequency: Special Occasions Quant: wine
--- NOTE | 2019-10-27 15:19 | HPC ---
[facility] [place] [place] [address] PAIN MANAGEMENT CONSULTATION Name: BRITTANY ROUSSEAU Room #: REG [facility].#: [id number] Admission: 10/27/19 Attend Phys: Maureen Garrido Discharge: Date of : 37 Report #: [id number] THIS REPORT FOR: cc: Cesar Donaldson James A. DO Hocker, Amanda CNS ~ CC: Cesar Kam DO DATE OF SERVICE: 10/27/2019 CHIEF COMPLAINT: Low back pain, lower extremity pain and paresthesias. HISTORY OF PRESENT ILLNESS: This is an 84-year-old female, who returns to the pain clinic today for refill of her opioid medications. Today, she is here with her granddaughter, who has helped transport her here. She states that her pain is in her mid-to-low back on the left side. It does not radiate down her left leg. It is a chronic aching. She reports a pain score of 9/10 today, worse with any standing, walking, cooking or activities around the house. She feels though that the medications are beneficial as well as sitting and lying down. She reported that she does take hydrocodone every morning, but at times she may need a second dose later in the day. She continues to wear her fentanyl patch and denies any problems with daytime somnolence or constipation. ALLERGIES: CIPRO. CURRENT LIST OF MEDICATIONS: Hydrocodone 5/325 daily, fentanyl 25 mcg patch, Protonix, Lopressor, vitamin D, Xarelto, losartan, atorvastatin. PQRS: 1. She has a history of osteoarthritis in her hands and spine. Denies any rheumatoid arthritis. 2. Height is 5 feet, weight is 114, BMI is 22. 3. Vital signs 110/56, pulse is 83, respirations 14, oxygen sat is 98, pain score is 9/10. 4. Fall risk. Denies dizziness. She does need assistance with walking, uses either a cane or a walker. Has not fallen in the last 3 months. The patient is on Xarelto as well as medicines for hypertension. Her opioid therapy is greater than 6 weeks; therefore, an opioid signed contract is on the chart. Risk assessment tool is low. Functional assessment is 43/70. 5. Recreational drug use, she denies. She is a current smoker of cigarettes, a pack a day and does drink alcohol. According to the prescription monitoring system, the patient is filling her medications appropriately. She is slightly past due to fill her fentanyl scripts. Her morphine mEq according to the CDC guidelines is 65 morphine mEq. We will check a random drug screen on this patient today. She does have a [address] [address] PAIN MANAGEMENT CONSULTATION Name: BRITTANY ROUSSEAU Room #: REG MARCELINO Castillo#: [id number] Admission: 10/27/19 Attend Phys: Maureen Garrido Discharge: Date of : 37 Report #: [id number] signed opioid contract in our chart. PHYSICAL EXAMINATION: GENERAL: This is an alert and orientated 84-year-old who appears her stated age, placing her current pain score at 9/10. She does have a strong smell of tobacco smoke today. HEENT: Normocephalic, atraumatic. Pupils equal, round and reactive to light. She is wearing a mask. EXTREMITIES: No clubbing, no cyanosis, no edema. MUSCULOSKELETAL: There is a kyphotic, scoliotic curvature of her thoracic, lumbar spine. Seated straight leg raising is negative. Gait is antalgic, uses a cane. Muscle bulk and strength appears symmetrical in her lower extremities. Tenderness in the thoracic, lumbar region. IMPRESSION: 1. Lumbar radiculopathy. 2. 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 3. Displacement of the lumbar intervertebral disk. 4. Lumbosacral spondylosis. 5. Lumbar degeneration. 2. Facet arthroscopy of the lumbar spine. 3. Opioid medication management under terms of written agreement. We reviewed the fact that opiate medications are being used to provide analgesia adequate to support activities of daily living, not attempting to achieve a specific pain score on the 0-10 Visual Analog Scale. The current opiate medications are providing sufficient analgesia to allow the patient to participate in activities of daily living. The patient is not exhibiting any aberrant behavior suggestive of drug diversion. The patient is not having any adverse reactions to medications. The patient is not suffering from daytime somnolence or mental acuity changes. The patient is managing opiate-induced constipation with appropriate gopz-rvv-lebtdrm agents and dietary considerations. The patient was counseled on concern for caution with operating a motor vehicle while using opiate medications. A physical exam was performed and the patient's functional status was evaluated. All patients with back pain were advised against the bed rest greater than 4 days and were advised to return to normal activities. Pain score assessment was noted and the treatment plan was reviewed with the patient. All current medications, both prescribed and OTC were reviewed and reconciled on the electronic medical record. Tobacco screening was accomplished and smoking cessation was advised when indicated. BMI was noted and diet/exercise modification was recommended for all patients following outside normal parameters. I reviewed with the patient today their responsibilities to safeguard [address] [address] PAIN MANAGEMENT CONSULTATION Name: BRITTANY ROUSSEAU Room #: REG MARCELINO Catsillo#: [id number] Admission: 10/27/19 Attend Phys: Maureen ANA Radhika Discharge: Date of : 37 Report #: [id number] prescription medications, reviewed their responsibility to utilize medications only as prescribed by the physician. They are to seek and receive pain medications only from 1 physician group ( [facility]). They are to use 1 pharmacy and keep the clinic informed if they change pharmacies. Their responsibilities include making followup visits in a timely fashion and to avoid abrupt discontinuation of medication usage. Their responsibilities further include bringing their medications (bottles from the pharmacy with residual pills) to the visit for possible confirmation of pill counts and the patient understands it is their responsibility to submit to random drug screens to ensure both that the medications prescribed are present, and that no other controlled substances are present. All prescriptions provided today were generated electronically. PLAN: 1. We discussed treatment options with the patient today. The patient is currently wearing her fentanyl patch on her thigh. I encouraged her to wear this above the waist either on her arms or her chest wall, not over bony prominence for better pain control and better absorption. 2. The patient did provide us with a random urine specimen for a drug screen today. It has been greater than a year since our last test for this patient. 3. The patient denies any significant constipation or daytime sleepiness as a result of her medications. We will continue her on her fentanyl 25 mcg, #10 for a quantity of [address] Cesar Kam will send a total of 3 months of individual prescriptions as well as a prescription for hydrocodone 5/325, #90 to her pharmacy electronically. 4. At the end of our conversation today, the patient asked if she was able to transfer to a different pain clinic, [facility] that is closer to her house, it is quite hard for her to find transportation issues to our clinic since she does not drive. I explained to her if they are willing to take her for medication management that is fine, just to notify us if she does transfer clinics that she will need to obtain all of her records to give to them. A form was given for medical record release. The patient is seen today in collaboration with Dr. Cesar Kam. <ELECTRONICALLY SIGNED> By: Maureen Garrido 10/27/19 1519 [id number] Maureen Garrido /nt
== END ==
LOC: PAIN 06:53
PROVIDERS: ATTEND Clinical Nurse Specialist Adult Health
DX: M51.16 Intervertebral disc disorders with radiculopathy, lumbar region (principal); M47.27 Other spondylosis with radiculopathy, lumbosacral region; F11.20 Opioid dependence, uncomplicated; M48.061 Spinal stenosis, lumbar region without neurogenic claudication; Z88.8 Allergy status to other drugs, medicaments and biological substances; Z79.899 Other long term (current) drug therapy

== ENCOUNTER 2019-11-04 09:08 | Inpatient (IN) | payer OTHER ==
[~2019-11-04] VITALS: Ht 152.4 cm; Wt 47.6 kg
[2019-11-04 09:13] VITALS: BP 119/58
[2019-11-04 16:48] LABS: URINE BILIRUBIN NEGATIVE (Negative); URINE BLOOD TRACE (Negative); URINE CLARITY CLOUDY; URINE COLOR YELLOW; URINE GLUCOSE-RANDOM* NEGATIVE (Negative); URINE KETONES NEGATIVE (Negative); URINE LEUKOCYTES-REFLEX 3+ (Negative); URINE NITRITE-REFLEX POSITIVE (Negative); URINE PROTEIN (DIPSTICK) NEGATIVE (Negative); URINE SPECIFIC GRAVITY <= 1.005 (1.005-1.035); URINE UROBILINOGEN 0.2 E.U./dl (0.2-1.0)
[2019-11-04 16:55] LABS: BACTERIA-REFLEX >30 Many /HPF (None Seen); CASTS None Seen /LPF (None Seen); CRYSTALS None Seen /LPF (None Seen); SQUAMOUS 4-10 Moderate /LPF (0-3); URINE RBC 0-2 Rare /HPF (0-2); URINE WBC-REFLEX >25 Many /HPF (0-5)
[2019-11-04 16:56] LABS: WBC CLUMPS Few (None Seen)
[2019-11-04 16:57] VITALS: BP 129/87
--- NOTE | 2019-11-04 16:57 | NUR ---
LAB CALLED AND WILL RUN BLOODWORK SENT FROM IV START, ORDERS PLACED.
[2019-11-04 16:58] LABS: ABSOLUTE NEUTROPHILS 5.9 thou/uL (1.4-8.2); BASOPHILS 0.4 % (0.0-2.0); EOSINOPHILS 3.8 % (0.0-3.0); HEMATOCRIT 33.1 % (37.0-47.0); HEMOGLOBIN 10.8 gm/dL (12.0-15.0); LYMPHOCYTES 24.2 % (24.0-44.0); MCH 28.9 pg (26.0-34.0); MCHC 32.8 g/dL (28.0-37.0); MCV 88.2 fL (80.0-100.0); MONOCYTES 7.6 % (1.0-8.0); PLATELET COUNT 329 thou/uL (150-400); RBC 3.75 mil/uL (4.20-5.00); RDW 16.4 % (10.5-14.5); WBC 9.2 thou/uL (4.0-11.0)
[2019-11-04 17:07] LABS: ALBUMIN 3.1 g/dL (3.4-5.0); CALCIUM 8.7 mg/dL (8.5-10.1); CREATININE 1.2 mg/dL (0.6-1.0); MAGNESIUM 1.8 mg/dL (1.8-2.4); POTASSIUM 4.5 mmol/L (3.5-5.1); TOTAL BILIRUBIN 0.2 mg/dL (0.2-1.0); TOTAL PROTEIN 7.4 g/dL (6.4-8.2)
[2019-11-04 17:48] VITALS: BP 141/70
[2019-11-04 18:43] VITALS: BP 148/79
[2019-11-04 19:03] LABS: FOLIC ACID 21.8 ng/mL (8.6-58.9)
[2019-11-04 19:40] VITALS: BP 144/72
--- NOTE | 2019-11-05 02:04 | NUR ---
PT CARE ASSUMED WITH PATIENT IN BED.PT WAS TRANSFERED FROM THE ER AT 1830.STAFF DID ADMISSION .PT IS ALERT AND ORIENTED X4.PT IS UP WITH STANDBY ASSIST WITH CANE AND GAIT BELT.PT IS TO DO MRI TODAY.PT C/O UPPER BACK PAIN AND HAD HYDROCODONE FOR PAIN MANAGEMENT.ADMISSION COMPLETED BY NURSE.CONSENT FORMS SIGNED BY PATIENT.WILL CONTINUE TO MONITOR POC
[2019-11-05 06:04] LABS: ABSOLUTE NEUTROPHILS 7.9 thou/uL (1.4-8.2); BASOPHILS 1.2 % (0.0-2.0); HEMATOCRIT 30.7 % (37.0-47.0); HEMOGLOBIN 10.2 gm/dL (12.0-15.0); LYMPHOCYTES 16.7 % (24.0-44.0); MCH 28.5 pg (26.0-34.0); MCHC 33.1 g/dL (28.0-37.0); MCV 86.1 fL (80.0-100.0); MONOCYTES 10.2 % (1.0-8.0); PLATELET COUNT 319 thou/uL (150-400); POLYS 71.9 % (36.0-66.0); RBC 3.57 mil/uL (4.20-5.00); RDW 16.1 % (10.5-14.5)
[2019-11-05 06:27] LABS: CREATININE 1.1 mg/dL (0.6-1.0); MAGNESIUM 1.9 mg/dL (1.8-2.4)
[2019-11-05 06:39] LABS: PROTIME 10.7 Seconds (9.3-11.4)
--- NOTE | 2019-11-05 07:44 | EKG ---
[facility] [place] [place] [address] ELECTROCARDIOGRAM REPORT Name: BRITTANY ROUSSEAU Room #: 443-P [facility] M.R.#: [id number] Admission: 11/04/19 Attend Phys: Óscar Casillas MD Discharge: Date of : 37 Report #: [id number] THIS REPORT FOR: cc: Cesar Donaldson James A. DO Santiago, Patrick MD [facility] ~ THIS REPORT FOR: //name// [facility] Test Date: 2019-11-04 Test Time: 18:25:44 Pat Name: BRITTANY ROUSSEAU Department: Room: 443 Gender: F Load Dispatcher Local: [place] ZHU : 1935 Requested By: Siena Murray Order Number: [id number] MD: Erick Brown Measurements Intervals [place] Rate: 104 P: 60 ID: [id number] QRS: 2 QRSD: 98 T: 47 QT: 372 QTc: 490 Interpretive Statements Sinus tachycardia Multiform ventricular premature complexes Probable LVH with secondary repol abnrm Borderline prolonged QT interval Compared to ECG 12/27/2018 09:01:28 Ventricular premature complex(es) now present Sinus rhythm no longer present Electronically Signed On 11-05-2019 7:44:08 CDT by Erick Brown [email or web address] <ELECTRONICALLY SIGNED> By: Erick Brown MD, [facility] 11/05/19 0744 24 24 Erick Brown MD, [facility] /EPI
[2019-11-05 09:09] VITALS: BP 136/79
--- NOTE | 2019-11-05 12:03 | NUR ---
PT CARE ASSUMED AT 0700. A&Ox4. PT PAIN TOLERATED BETTER WHEN UP IN THE RECLINER.MRI COMPLEETED IN THE AM. SEE IMAGING. IV PATENT WITH NO REDENSS OR EDEMA, SALINE LOCKED. IV ATBX. PAIN MEDICATION GIVEN FOR PAIN. IV PAIN MEDS ADDED FOR BREAK THROUGH PAIN. NOT YET GIVEN AT THIS POINT. SCDS IN PLACE. FENTANYL PATCH ON L.SHOULDER. NICOTINE PATCH ON L. SHOULDER BLADE. 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 PT UP WITH THE WALKER AND CANE AT HOME. FALL PROTOCOL IN PLACE. CALL LIGHT IN REACH. WILL CONTINUE TO MONITOR.
--- NOTE | 2019-11-05 13:03 | NUR ---
INITIAL ASSESSMENT: SW reviewed chart and spoke with nursing and attending physician. Pt was admitted from home due to severe back pain/compression fx. Pt had MRI earlier today and have orders for therapy to evaluate pt for discharge needs. SW met with pt at bedside. Introduced role of SW. Pt is alert/orientated x 4 and states she lives at home. Her son lives in the apt above her. Prior to admission, pt was independent with ADLs. Pt does have a cane and walker at home if needed. No steps to navigate. Pt has used [facility] in the past and would be agreeable with using them again if needed. Pt's PCP is Dr. Donaldson. Awaiting therapy evals at this time. 5N following to see if pt would be a candidate for inpt acute rehab. SW is following to assist as needed with discharge planning.
[2019-11-05 21:50] VITALS: BP 138/68
[2019-11-06 05:10] VITALS: BP 146/81
--- NOTE | 2019-11-06 05:27 | NUR ---
ASSUMED PT'S CARE THIS PM SHIFT. PT ALERT AND ORIENTED. VSS ON RA. MEDS GIVEN PER EMAR. PAIN MEDS GIVEN SEVERAL TIMES THIS SHIFT. PT UP WITH ONE TO THE [facility] WITH CANE. PT GOT MORPHINE IV. AFTER OVER AN HOUR, PT COMPLAINED TO NURSING THAT SHE MAY HAVE BEEN HALLUCINATING, SEEIG PEOPLE SHE GREW UP WITH IF THEY WERE KIDS AGAIN. PT INFORMED THAT NURSING AVE CHECKED ON HER FOR AT LEAST 3X AND SHE HAVE BEEN SLEEPING WELL. PT VOICED SHE MAY HAVE BEEN DREAMING. PT VOICED PAIN MED HELPED ALOT. FALL PRECAUTION IN PLACE. CALL LIGHT WITHIN REACH. PT CALLS OUT APPROPRIATELY. WILL CONTINUE TO MONITOR.
[2019-11-06 09:09] VITALS: BP 151/70
--- NOTE | 2019-11-06 16:01 | NUR ---
PT CARE ASSUMED AT 0700. A&Ox4. PT UP IN THE RECLINER MOST OF THE MORNING AND LAYED BACK DOWN BEFORE LUNCH. PAIN TOLERATED VERY WELL WITH MEDICATION ON BOARD. PT IV MEDS SWITCHED FROM MORPHINE TO FENTANYL DUE TO PT EXPRESSING HALUZINATIONS AND VIVID DREAMS. NICOTINE PATCH ON R. SHOULDER BLADE. FENTANYL PATCH ON R. SHOULDER. SCD'S IN PLACE. UP TO THE BATHROOM WITH HER [place] AND ONE ASSIST. VITALS STABLE. KYPOPLAST ON FRIDAY. CONSENT SIGNED ON CHART. DISCHARGE HOME WITH HOME HEALTH AFTER KYPOPLASTY IF PT CLEARS. CALL LIGHT IN REACH. FALL PROTOCOL IN PLACE. WILL CONTINUE TO MONITOR.
[2019-11-06 17:35] VITALS: BP 126/62
[2019-11-06 21:46] VITALS: BP 144/63
--- NOTE | 2019-11-07 03:24 | NUR ---
PT LYING IN BED. VOIDING PER BEDSIDE COMMODE. LORTAB PROVIDING PAIN RELIEF. RESTING COMFORTABLY. NO NEEDS VOICED. CALL LIGHT WITHIN REACH. FREQUENT OBSERVATION.
[2019-11-07 07:15] VITALS: BP 142/72
--- NOTE | 2019-11-07 11:12 | NUR ---
PT CARE ASSUMED AT 0700. A&Ox4. PT VERY SLEEPY IN THE AM AND REQUESTED NOT TO GET UP IN THE RECLINER. FENTANYL PATCH ON L.SHOULDER BLADE. NICOTINE PATCH ON L.ARM. PT UP WITH STANDBY ASSIST AND CANE TO THE BATHROOM. KYPHOPLASTY SCHEDULED FOR TOMORROW IN THE AM THEN EVALUATION BY PT TO BE DISCHARGED WITH HOME HEALTH. IV PATENT WITH NO REDNESS OR EDEMA, SALINE LOCKED, IV ANTIBIOTICS. FALL PROTOCOL IN PLACE. CALL LIGHT IN REACH. WILL CONTINUE TO MONITOR.
[2019-11-07 19:45] VITALS: BP 126/81
--- NOTE | 2019-11-08 05:04 | NUR ---
PT AMBULATING TO BATHROOM WITH CANE AND STANDBY ASSIST AND IS TOLERATING FAIR. LORTAB PROVIDING PAIN RELIEF. RESTING COMFORTABLY. NO NEEDS VOICED. CALL LIGHT WITHIN REACH. FREQUENT OBSERVATION.
[2019-11-08 09:30] VITALS: BP 137/60
--- NOTE | 2019-11-08 13:02 | NUR ---
PT RETURNED FROM KYPHOPLASTY ABOUT 1000, VSS, PT RESTING IN BED, SAID "NO" WHEN ASKED IF HAVING PAIN, AROUND 1230 PT COMPLAINED OF PAIN, BODY TWISTING, WINCING, BECAUSE OF THE PAIN IN HER BACK WHICH SHE SAYS IS THE WORST SHE'S EVER HAD, DR URBINA CALLED, GARDNEIA FERRIS RETURNED CALL, SHE IS ASKING, THE MD FOR ORDERS.
--- NOTE | 2019-11-08 14:17 | NUR ---
WENDI DATABASE SUPPORT IN TO SEE PT, IV FENTANYL, PO OXYCODONE GIVEN, PT WAS INSTRUCTED IN ALTERNATIVE MEASURES AND EVENTUALLY FELL ASLEEP. WHEN SHE WOKE UP A FEW MINUTES LATER, A MUSCLE RELAXANT WAS GIVEN THE PAIN APPEARED TO BE A "CRAMP" PT RESTING IN BED, WILL MONITOR
--- NOTE | 2019-11-08 15:56 | NUR ---
PT UNDERWENT KYPHOPLASTY THIS DAY. PT AND OT VARIANCED PT HAD INCREASED PAIN POST OP. PT AND OT TO SEE IN THE AM. 5N IS TO ACCESS. 5N VX HOME WITH HH DEPENDING ON MOBILITY AND PAIN. CM TO FOLLOW INDICATED WITH DC PLANNING.
[2019-11-08 16:05] VITALS: BP 126/66
[2019-11-08 21:13] VITALS: BP 140/81
--- NOTE | 2019-11-09 02:39 | NUR ---
ASSESSED AT START OF SHIFT. PT A&OX4 C/O PAIN 05/20 MANAGED WTH PO PAIN MED SEE EMAR. PT UP WITH ASSIST WITH A CANE TO THE BATHROOM. NEW IV 22G INSERTED IN RT AC DUE TO OLD IV LEAKING. ABX GIVEN. FALL PREC IN PLACE AND CALL LIGHT IN REACH WILL CONT WITH POC TILL EOS.
[2019-11-09 07:48] VITALS: BP 149/83
[2019-11-09 12:57] VITALS: BP 149/83
[2019-11-09 12:58] VITALS: BP 149/83
--- NOTE | 2019-11-09 13:15 | NUR ---
CM SENT REFERRAL TO [facility]. MATT STATED THE WILL ACCEPT PT ON SERVICE AND CONTACT HER THIS EVENING OR TOMORROW TO ARRANGE VISITS. PT NOTIFIED BY BEDSIDE RNROLANDO.
--- NOTE | 2019-11-09 13:32 | NUR ---
Assumed care of pt at 0700. Pt a&ox4. States pain is a lot better than prior to procedure. SBA with cane. Pt discharging home with HH.
== END 2019-11-09 13:53 | disposition home health service (06) | DRG 516 ==
LOC: ER 09:08 → 4S 16:39 → EROBS 16:39 → 4S 18:08
PROVIDERS: Nurse Practitioner; ADMIT Hospitalist; ATTEND Hospitalist
DX: M48.56XA Collapsed vertebra, not elsewhere classified, lumbar region, initial encounter for fracture (principal); N17.9 Acute kidney failure, unspecified; I42.9 Cardiomyopathy, unspecified; N39.0 Urinary tract infection, site not specified; Z16.12 Extended spectrum beta lactamase (ESBL) resistance; I10 Essential (primary) hypertension; M81.0 Age-related osteoporosis without current pathological fracture; F17.210 Nicotine dependence, cigarettes, uncomplicated; M48.54XA Collapsed vertebra, not elsewhere classified, thoracic region, initial encounter for fracture; E78.5 Hyperlipidemia, unspecified; I70.209 Unspecified atherosclerosis of native arteries of extremities, unspecified extremity; M85.88 Other specified disorders of bone density and structure, other site; M40.205 Unspecified kyphosis, thoracolumbar region; B96.20 Unspecified Escherichia coli [E. coli] as the cause of diseases classified elsewhere; K21.9 Gastro-esophageal reflux disease without esophagitis; Z86.73 Personal history of transient ischemic attack (TIA), and cerebral infarction without residual deficits; Z86.711 Personal history of pulmonary embolism; Z88.1 Allergy status to other antibiotic agents; Z79.01 Long term (current) use of anticoagulants; Z79.899 Other long term (current) drug therapy
CPT/HCPCS: 10195

== ENCOUNTER → 2020-02-02 | Outpatient (CLI) | payer OTHER ==
[~2020-02-02] VITALS: Ht 152.4 cm; Wt 49.5 kg
[~2020-02-02] MED LIST changes: +FISH OIL 1,0001 EAC9 PO
[2020-02-02 14:15] VITALS: BP 132/75
--- NOTE | 2020-02-02 14:25 | NUR ---
Pain Clinic Assessment: 1. History of Osteoarthritis: SPINE HANDS History of Rheumatoid Arthritis: Not Applicable 2. Height: 5 ft. 0 in. 152.4 cm. Weight: 109.2 lb. oz. 49.533 kg. Patient's BMI: 21.3 3. Vital Signs: BP: 132/75 Pulse: 105 Resp: 16 Temp: 02 Sat: 98 ECG Mon: 4. Pain Intensity: 8 5. Fall Risk: Dizziness: N Needs help standing or walking: Y Fallen in the last 3 months: N Fall risk comments: 6. Patient on Blood Thinner: xarelto 7. History of Hypertension: Y 8. Opioid Therapy greater than 6 weeks: Y Opiate Contract Signed: 05/21/17 9. Risk Assessment Tool Provided: 0 LOW 10. Functional Assessment Tool: 11. Recreational Drug Use: Never Drug Type: Tobacco Use: Current Every Day Smoker Tobacco Type: Cigarettes Amount or Packs/day: 1/2 PACK How Many Years: 50 Alcohol Use: Yes Frequency: Special Occasions Quant: 1
--- NOTE | 2020-02-07 10:13 | HPC ---
[facility] [address] PAIN MANAGEMENT CONSULTATION Name: BRITTANY ROUSSEAU Room #: REG [facility]..#: [id number] Admission: 02/02/20 Attend Phys: Cesar Kam DO Discharge: Date of : 37 Report #: [id number] THIS REPORT FOR: cc: Cesar Donaldson James A. DO Johnson, James E. DO ~ DATE OF SERVICE: 02/02/2020 CHIEF COMPLAINT: Low back pain, lower extremity pain and paresthesias. HISTORY OF PRESENT ILLNESS: As you know, the patient is an 84-year-old female returning in followup visit with increasing back pain to undergo lumbar epidural injection under fluoroscopic guidance. She has stopped her Xarelto 3 days prior to today's appointment in preparation for that injection. She indicates today pain level of 8/10. She states pain is exacerbated with almost all activities of daily living. She also is requesting refill of medications for which she uses a fentanyl 25 mcg q. 72 hours along with a hydrocodone 5/325 up to 3 times a day p.r.n. for pain. She denies side effects to medication, does feel medications are working beneficially except for this recent exacerbation of symptoms. ALLERGIES: CIPROFLOXACIN. CURRENT MEDICATIONS: Atorvastatin 40 mg per day, losartan 100 mg per day, Xarelto 15 mg every day, held for the past 3 days, cholecalciferol 5000 units per day, pantoprazole 40 mg per day, fentanyl 25 mcg q. 72 hours, hydrocodone/acetaminophen 5/325 t.i.d., metoprolol 25 mg once a day, omega-3 fish oil 1 tab per day. SOCIAL HISTORY: The patient continues to deny IV or illicit drug use. Denies any chronic alcohol use. She continues to smoke half to 1 pack tobacco per day. She has done so for greater than 50 years. She is unaccompanied at today's visit. IMAGING: No new imaging available. PQRS: The patient has known arthritic changes of the cervical spine, lumbar spine, bilateral hands and hips. No rheumatoid arthritis. She is placing pain intensity at 8/10. She is a fall risk, but has not had a fall in last 3 months. She is utilizing a cane for ambulation and balance. She is on blood thinners in the form of Xarelto, but has discontinued this medication over the past 3 days in preparation for the epidural injection. She is treated for hypertension. She is on chronic opioids, has a low opiate addiction potential based on assessment tool. Pain impact 43 out of 70, moderate to severe interference of daily activities secondary to pain. [address] [address] PAIN MANAGEMENT CONSULTATION Name: BRITTANY ROUSSEAU Room #: REG [facility] Poonam.Nadia.#: [id number] Admission: 02/02/20 Attend Phys: Cesar Kam DO Discharge: Date of : 37 Report #: [id number] PHYSICAL EXAMINATION: VITAL SIGNS: Blood pressure 132/75, pulse 105, respiratory rate 16 and unlabored. The patient is 98% on room air. Height 5 feet tall, weight 109.2 pounds, BMI calculated 21.3. GENERAL: Well-developed, somewhat frail appearing 84-year-old female, smells strongly of tobacco smoke, placing current pain score at 8/10. HEENT: Normocephalic. Pupils equal and round. The patient is wearing a mask in compliance with COVID-19 regulations. EXTREMITIES: Show no clubbing, no cyanosis, no edema. MUSCULOSKELETAL: Lower extremity strength is weakened bilaterally, this appears to be due to deconditioning. Strength itself is full against resistance. Muscle bulk and tone equal and symmetrical in lower extremities. Seated straight leg raising negative. Supine straight leg raising positive. Roni's test is negative. Modified Gaenslen's positive for axial low back pain. ASSESSMENT: 1. Symptomatic lumbar radiculopathy. 2. Progressively worsening spinal stenosis of lumbar spine. 3. Displacement of lumbar intervertebral disk with radiculopathy. 4. Lumbosacral spondylosis with radiculopathy. 5. Lumbar degeneration. 6. Facet arthropathy of the lumbar spine. 7. Opioid dependency. 8. Tobacco habituation. 9. Chronic intractable pain. PLAN: 1. The patient returns today in followup visit where we have discussed at length the efficacy of epidural injections in the past. The patient has made today's appointment to undergo next in the series of epidural injections in hopes of improving pain. She has been off her Xarelto for the past 3 days in preparation for today's procedure. She has been advised risks and benefits, states understood and wished to proceed. 2. The patient and I had a long discussion about smoking cessation. The smoking that the patient continues to participate is exacerbating her ongoing chronic pain. We have discussed this with the patient multiple times. She is unwilling to make any changes in her social history. We did offer and we will continue to offer assistance in getting off cigarettes if she wishes to avail herself of those offers. 3. The patient was provided a prescription of fentanyl 25 mcg patch 1 patch q. 72 hours. I have given her #10 patches to release today and 1 month from today, total of 2 months' worth of medication. The patient and I did discuss in the past and again today the fentanyl patch conversion factor to morphine equivalence is rated anywhere from 4-7.2 depending on the conversion utilized. Thus, the patient is well over the CDCs recommended 90 morphine equivalents a day will have to be seen on a more frequent basis. This in conjunction with the [facility] [address] [place] [address] PAIN MANAGEMENT CONSULTATION Name: BRITTANY ROUSSEAU Room #: REG MARCELINO Chow.#: [id number] Admission: 02/02/20 Attend Phys: Cesar Kam DO Discharge: Date of : 37 Report #: [id number] fact the patient continues to smoke leaving her at high risk for respiratory issues, we will need to monitor more closely. She was given a 2-month prescription today. 4. The patient was provided refill prescription of hydrocodone 5/325 one tab p.o. q. 8 hours p.r.n. for pain. I have given the patient #90 tablets, releasing today and 4 weeks from today, 2 months' worth of medication. Please see above for our concerns in regards to opioid medications and chronic smoking and the reason why she will be returning on a 2-month basis. 5. We plan to see the patient back in followup visit in 2 months for medication management. She can return at any time if she wishes to undergo next in the series of epidural injections. PROCEDURE NOTE DESCRIPTION OF PROCEDURE: L5-S1 intralaminar epidural steroid injection under fluoroscopic guidance. After obtaining written consent, the patient was taken back to fluoroscopy suite, placed in prone position with pillow under abdomen to decrease lumbar lordosis. Skin overlying lumbosacral area prepped and draped in aseptic fashion. The L5-S1 vertebral interspace identified by AP fluoroscopy. Skin and subcutaneous tissue overlying target site injection anesthetized with 3 mL of 1% lidocaine. A 20-gauge 3-1/2 inch Tuohy needle advanced under fluoroscopic guidance towards the epidural space using a parasagittal approach. Epidural space identified using loss of resistance to air technique. After negative aspiration for heme or cerebrospinal fluid, 1 mL of Omnipaque injected. Lumbar epidurogram confirmed using both AP and lateral fluoroscopy. After negative aspiration for heme or cerebrospinal fluid, 5 mL of solution containing 2 mL 40 mg per mL, 80 mg total triamcinolone along with 3 mL of lidocaine 1% injected slowly. Needle retracted approximately half way, flushed with 1 mL of 1% lidocaine and removed. Sterile bandage placed over injection site. No new motor deficits present in lower extremity following procedure. The patient tolerated procedure well, carefully escorted to recovery room in stable condition. No apparent complications. After meeting discharge criteria, the patient discharged home. <ELECTRONICALLY SIGNED> By: Cesar Kam DO 02/07/20 1013 1745 2044 Cesar Kam DO /nt
== END | disposition home or self-care (01) ==
LOC: PAIN 06:58
PROVIDERS: ATTEND Anesthesiology Pain Medicine
DX: M47.27 Other spondylosis with radiculopathy, lumbosacral region (principal); M51.16 Intervertebral disc disorders with radiculopathy, lumbar region; M48.061 Spinal stenosis, lumbar region without neurogenic claudication; M47.26 Other spondylosis with radiculopathy, lumbar region; G89.29 Other chronic pain; I10 Essential (primary) hypertension; M19.90 Unspecified osteoarthritis, unspecified site; F11.20 Opioid dependence, uncomplicated; F17.210 Nicotine dependence, cigarettes, uncomplicated; Z98.890 Other specified postprocedural states; Z79.899 Other long term (current) drug therapy; Z79.01 Long term (current) use of anticoagulants; Z88.8 Allergy status to other drugs, medicaments and biological substances

== ENCOUNTER → 2020-03-08 | Outpatient (CLI) | payer OTHER ==
[~2020-03-08] VITALS: Ht 152.4 cm; Wt 51.3 kg
[2020-03-08 13:21] VITALS: BP 102/56
--- NOTE | 2020-03-08 13:29 | NUR ---
Pain Clinic Assessment: 1. History of Osteoarthritis: SPINE HANDS History of Rheumatoid Arthritis: Not Applicable 2. Height: 5 ft. in. 152.4 cm. Weight: 113.2 lb. oz. 51.347 kg. Patient's BMI: 22.1 3. Vital Signs: BP: 102/56 Pulse: 84 Resp: 18 Temp: 02 Sat: 99 ECG Mon: 4. Pain Intensity: 8-STANDING; 5-SITTING 5. Fall Risk: Dizziness: N Needs help standing or walking: N Fallen in the last 3 months: N Fall risk comments: 6. Patient on Blood Thinner: xarelto 7. History of Hypertension: Y 8. Opioid Therapy greater than 6 weeks: Y Opiate Contract Signed: 05/21/17 9. Risk Assessment Tool Provided: 0 LOW 10. Functional Assessment Tool: 11. Recreational Drug Use: Never Drug Type: Tobacco Use: Current Every Day Smoker Tobacco Type: Cigarettes Amount or Packs/day: 1/2 PACK How Many Years: Alcohol Use: Yes Frequency: Special Occasions Quant: HOLIDAYS
--- NOTE | 2020-03-10 14:10 | HPC ---
[facility] [address] [place] [address] PAIN MANAGEMENT CONSULTATION Name: BRITTANY ROUSSEAU [id number] Admission: 03/08/20 Attend Phys: Cesar Kam DO Discharge: Date of : 37 Report #: [id number] THIS REPORT FOR: cc: Cesar Donaldson James A. DO Johnson, James E. DO ~ DATE OF SERVICE: 03/08/2020 REFERRING PHYSICIAN: Cesar Donaldson DO CHIEF COMPLAINT: Low back pain, lower extremity pain with paresthesias. HISTORY OF PRESENT ILLNESS: As you know, the patient is an 84-year-old female with ongoing low back pain, bilateral lower extremity pain and paresthesias. As you are aware, the patient suffers from severe central canal stenosis of lumbar spine with recurrence of lumbar radicular symptoms without inciting injury or trauma. She undergoes intermittent epidural injections under fluoroscopic guidance with a 70% improvement in overall pain, typical for her along with medication management. She states the previous epidural injection provided up to 70% improvement in overall pain lasting until just recently where she had a slow and progressive recurrence of pain. She reports to nursing today that she has not stopped her Xarelto prior to today's procedure. She advises me that she stopped the medication on Friday of this week. She has returned requesting a lumbar epidural injection under fluoroscopic guidance to address any residual lumbar radicular symptoms that has reoccurred and is not controlled by current medications. She denies injury or trauma that may have led to symptom reoccurrence. ALLERGIES: CIPROFLOXACIN. CURRENT MEDICATIONS: Atorvastatin, losartan, Xarelto, cholecalciferol, pantoprazole, fentanyl, hydrocodone/acetaminophen, metoprolol, omega-3 fish oil. SOCIAL HISTORY: The patient continues to deny IV or illicit drug use. Denies any chronic alcohol use. She smokes 1 pack tobacco per day. She has done so for greater than 50 some years. She is unaccompanied today. IMAGING: No new imaging available. PQRS: The patient has known arthritic changes of the cervical spine, lumbar spine, bilateral hips and knees as well as hands. No rheumatoid arthritis. She is placing pain intensity today at 5-8/10. She is a fall risk, but has not had a fall in last 3 months. She is utilizing a roller walker for ambulation and balance. She is on blood thinners in the form of Xarelto advising me she has discontinued the medication greater than 3 days ago. She is treated for hypertension. She is on chronic opioids, has a low opiate addiction potential. [address] [address] PAIN MANAGEMENT CONSULTATION Name: BRITTANY ROUSSEAU Room #: REG Zuly Levin.Nadia.#: [id number] Admission: 03/08/20 Attend Phys: Cesar Kam DO Discharge: Date of : 37 Report #: [id number] Pain impact score is 43 of 70, moderate to severe interference of daily activities secondary to pain. PHYSICAL EXAMINATION: VITAL SIGNS: Blood pressure 102/56, pulse 84, respiratory rate 18 and unlabored. The patient is 99% on room air. Height 5 feet tall, weight 113.2 pounds, BMI calculated 22.2. GENERAL: Well-developed, well-nourished, well-hydrated, kyphotic, scoliotic 84-year-old female, smells strongly of tobacco smoke, placing current pain score at 5-8/10. HEENT: Normocephalic, atraumatic. Extraocular muscles are intact. The patient is wearing a mask in compliance with COVID-19 regulations. EXTREMITIES: Show no clubbing, no cyanosis, no edema. MUSCULOSKELETAL: Lower extremity strength is weakened bilaterally. Muscle bulk is equal and symmetrical. Seated straight leg raising negative. Supine straight leg raising positive. Roni's test negative. ASSESSMENT: 1. Symptomatic lumbar radiculopathy. 2. Spinal stenosis of lumbar spine. 3. Displacement of lumbar intervertebral disk with radiculopathy. 4. Lumbosacral spondylosis with radiculopathy. 5. Facet arthropathy of the lumbar spine. 6. Lumbar degeneration. 7. Opioid dependency. 8. Tobacco habituation. 9. Chronic intractable pain. PLAN: 1. The patient returns today in followup visit indicating that she has discontinued her Xarelto on Friday in preparation for today's procedure. This was advised to myself by the patient, though the patient advised by my nurse that she has not stopped the medication prior to procedure today. I have advised the patient that if she remains on anticoagulants, she runs an extremely high risk of bleeding into the spinal canal area and this could lead to a spinal compression and possible paralysis. The patient is adamant that she has discontinued the medication and wishes to undergo the procedure. We have advised the patient of the other risks and benefits outside of the anticoagulant risks. The following was discussed with the patient, its risks today. We discussed risks that include, but are not necessarily limited to bleeding, bruising, infection, worsening pain, no relief of pain, also risk of temporary or permanent muscle weakness, temporary or permanent nerve damage, possible paralysis, post-dural puncture headache and . The patient states understood and wished to proceed. 2. No medication changes made at today's visit. The patient will restart her [facility] [place] [address] PAIN MANAGEMENT CONSULTATION Name: BRITTANY ROUSSEAU Room #: REG MARCELINO Chow.#: [id number] Admission: 03/08/20 Attend Phys: Cesar Kam DO Discharge: Date of : 37 Report #: [id number] Xarelto this evening and continue Xarelto as directed. She will follow the prescription parameters given by the prescribing physician. 3. We will see the patient back in followup visit for medication management at our previously established appointment time; otherwise, we will see her back on an as needed basis for lumbar epidural injections. PROCEDURE NOTE DESCRIPTION OF PROCEDURE: L5-S1 intralaminar epidural steroid injection under fluoroscopic guidance. After obtaining written consent, the patient was taken back to fluoroscopy suite, placed in prone position with pillow under abdomen to decrease lumbar lordosis. Skin overlying lumbosacral area then prepped and draped in aseptic fashion. The L5-S1 vertebral interspace identified by AP fluoroscopy. Skin and subcutaneous tissue overlying target site injection anesthetized with 3 mL of 1% lidocaine. A 20-gauge 3-1/2 inch Tuohy needle advanced under fluoroscopic guidance towards the epidural space using a parasagittal approach. Epidural space identified using loss of resistance to air technique. After negative aspiration for heme or cerebrospinal fluid, 1 mL of Omnipaque injected. Lumbar epidurogram confirmed using both AP and lateral fluoroscopy. After negative aspiration for heme or cerebrospinal fluid, 5 mL of solution containing 2 mL 40 mg per mL, 80 mg total triamcinolone along with 1 mL of 1% preservative-free lidocaine and 2 mL of preservative-free normal saline was injected. Needle retracted approximately half way, flushed with 1 mL of 1% lidocaine and removed. Sterile bandage placed over injection site. No new motor deficits present in lower extremity following procedure. The patient tolerated procedure well, carefully escorted to recovery room in stable condition. No apparent complications. After meeting discharge criteria, the patient discharged home. <ELECTRONICALLY SIGNED> By: Cesar Kam DO 03/10/20 1410 [id number] Cesar Kam DO /nt
== END | disposition home or self-care (01) ==
LOC: PAIN 06:56
PROVIDERS: ATTEND Anesthesiology Pain Medicine
DX: M51.16 Intervertebral disc disorders with radiculopathy, lumbar region (principal); M48.061 Spinal stenosis, lumbar region without neurogenic claudication; M47.27 Other spondylosis with radiculopathy, lumbosacral region; M47.26 Other spondylosis with radiculopathy, lumbar region; G89.29 Other chronic pain; I10 Essential (primary) hypertension; M19.90 Unspecified osteoarthritis, unspecified site; F17.220 Nicotine dependence, chewing tobacco, uncomplicated; Z98.890 Other specified postprocedural states; Z79.899 Other long term (current) drug therapy; Z88.8 Allergy status to other drugs, medicaments and biological substances; Z79.01 Long term (current) use of anticoagulants

== ENCOUNTER → 2020-04-18 | Outpatient (CLI) | payer OTHER ==
[~2020-04-18] VITALS: Ht 152.4 cm; Wt 50.4 kg
[2020-04-18 10:10] VITALS: BP 110/67
--- NOTE | 2020-04-18 10:20 | NUR ---
Pain Clinic Assessment: 1. History of Osteoarthritis: SPINE HANDS History of Rheumatoid Arthritis: Not Applicable 2. Height: 5 ft. 0 in. 152.4 cm. Weight: 111.2 lb. oz. 50.440 kg. Patient's BMI: 21.7 3. Vital Signs: BP: 110/67 Pulse: 100 Resp: 20 Temp: 02 Sat: 97 ECG Mon: 4. Pain Intensity: 6 5. Fall Risk: Dizziness: N Needs help standing or walking: N Fallen in the last 3 months: N Fall risk comments: 6. Patient on Blood Thinner: xarelto 7. History of Hypertension: Y 8. Opioid Therapy greater than 6 weeks: Y Opiate Contract Signed: 05/21/17 9. Risk Assessment Tool Provided: 0 LOW 10. Functional Assessment Tool: 11. Recreational Drug Use: Never Drug Type: Tobacco Use: Current Every Day Smoker Tobacco Type: Cigarettes Amount or Packs/day: 1 PACK/DAY How Many Years: 60 Alcohol Use: Yes Frequency: Quant:
--- NOTE | 2020-04-19 07:54 | HPC ---
[facility] [address] [place] [address] PAIN MANAGEMENT CONSULTATION Name: BRITTANY ROUSSEAU Room #: [facility] M.R.#: [id number] Admission: Attend Phys: Maureen Garrido Discharge: Date of : 37 Report #: [id number] THIS REPORT FOR: cc: Cesar Donaldson James A. DO Hocker, Amanda CNS ~ DATE OF SERVICE: 04/18/2020 CHIEF COMPLAINT: Low back pain, left lower extremity pain and paresthesias. HISTORY OF PRESENT ILLNESS: This is an 85-year-old female who returns to the pain clinic today for renewal of her medications. She continues to have ongoing low back pain that does radiate into her lower extremities. Unfortunately, she did not see any significant improvement from the last injection that Dr. Cesar Kam performed in February. She did report a 70% improvement in her first injection in January, but the 2nd shot did not build on that improvement. Today, she reports she feels like she is back to her baseline, rating her pain a 6/10. Her pain is worse with activity, walking and prolonged standing. Overall, she believes the medication as well as sitting are beneficial. She denies any daytime somnolence or constipation as a result of her opioid medications. The patient reports she has not been able to have the COVID vaccine yet. She is signed up at multiple sites. ALLERGIES: CIPRO. CURRENT LIST OF MEDICATIONS: Hydrocodone 5/325 daily, fentanyl 25 mcg patch, omega 3, metoprolol, Protonix, vitamin D, Xarelto, losartan, and Lipitor. PQRS: 1. She has osteoarthritic changes in her cervical and lumbar spine as well as her hips, knees and hands. Denies any rheumatoid arthritis. 2. Height is 5 feet, weight is 111, BMI is 21. Vital signs 110/67, pulse is 100, respirations 20, oxygen sat is 97%. Pain score is 6/10. Fall Risk: Denies dizziness, does not need help walking or standing, has not fallen in the last 3 months. She remains on Xarelto as well as medications for hypertension. Opioid therapy is greater than 6 weeks; therefore, an opioid signed contract is on the chart. Risk assessment is low. Functional assessment is 43/70. 3. Recreational drug use, she denies. She is a current smoker of a pack of cigarettes a day and does drink alcohol as well. According to the prescription monitoring system, she filled her last patches in 03/13/2020 and is due to fill those today. Her morphine mEq is 65 MMEs per day. There is a urine drug screen on the chart that is appropriate for her medications as well. [address] [address] PAIN MANAGEMENT CONSULTATION Name: SOHAMBRITTANY M Room #: PRE Zuly M.RGely#: [id number] Admission: Attend Phys: Maureen Garrido Discharge: Date of : 37 Report #: [id number] PHYSICAL EXAMINATION: GENERAL: This is alert, orientated, well-developed 85-year-old female who is rating her pain score at 6/10. HEENT: Normocephalic, atraumatic. Extraocular eye muscles are intact. She is wearing a mask. EXTREMITIES: No clubbing, no cyanosis, no edema. MUSCULOSKELETAL: She is kyphotic and has scoliosis. Pain is in the lumbar portion of her back radiating to her legs following the L5-S1 dermatomal distribution. Lower extremity strength is diminished bilaterally due to deconditioning. Seated straight leg raising is negative. Modified Gaenslen's is positive for axial low back pain. ASSESSMENT: 1. Symptomatic lumbar radiculopathy. 2. Spinal stenosis of lumbar spine. 3. Displacement of the lumbar intervertebral disk with radiculopathy. 4. Lumbosacral spondylosis with radiculopathy. 5. Lumbar degeneration. 6. Facet arthroscopy of the lumbar spine. 7. Opioid dependency. 8. Tobacco habituation. 9. Chronic intractable pain. We reviewed the fact that opiate medications are being used to provide analgesia adequate to support activities of daily living, not attempting to achieve a specific pain score on the 0-10 Visual Analog Scale. The current opiate medications are providing sufficient analgesia to allow the patient to participate in activities of daily living. The patient is not exhibiting any aberrant behavior suggestive of drug diversion. The patient is not having any adverse reactions to medications. The patient is not suffering from daytime somnolence or mental acuity changes. The patient is managing opiate-induced constipation with appropriate [id number] agents and dietary considerations. The patient was counseled on concern for caution with operating a motor vehicle while using opiate medications. PLAN: 1. We discussed treatment options with the patient today. Unfortunately, the patient did not have beneficial results from her second lumbar epidural injection, though she did receive 70% improvement from the first injection in January. The patient feels that the previous injection had been more beneficial than this series. She feels like she has returned to baseline, and continues to utilize her opioid medications. Today, we will have Dr. Cesar Kam, who is collaborating care send her fentanyl 25 mcg patch to be released today and again on 05/15/2020 as well as hydrocodone 5/325, #90. The patient utilizes one tablet per day. [address] [address] PAIN MANAGEMENT CONSULTATION Name: BRITTANY ROUSSEAU Room #: [facility] M.R.#: [id number] Admission: Attend Phys: Maureen Garrido Discharge: Date of : 37 Report #: [id number] 2. We did discuss the patient does need to come every 2 months according to the guidelines in our office based on the CDC recommendations due to the fact that her morphine mEq is above 50 MMEs. 3. We did discuss the COVID vaccine. The patient has been unable to secure an appointment. I encouraged her to go to [facility] to see if they will vaccinate her without an appointment since she does fall in the greater than 80-year-old category. Encouraging her to go towards the end of the day when they may possibly have leftover vaccines available, the address was given to her. Time spent with the patient today in consultation and physical exam for 13 minutes prior to appointment today. I spent time reviewing the chart and any pertinent medical documentation including physician notes and imaging time, also spent reviewing prescription monitoring system, side effects of medication related to care. Sending scripts electronically with collaborating physician, Cesar Kam and documentation of at least 12 minutes. Total time spent 25 minutes. <ELECTRONICALLY SIGNED> By: Maureen Garrido 04/19/20 0754 [id number] Maureen Garrido /nt
== END ==
LOC: PAIN 06:41
PROVIDERS: ATTEND Clinical Nurse Specialist Adult Health
DX: M51.16 Intervertebral disc disorders with radiculopathy, lumbar region (principal); M48.061 Spinal stenosis, lumbar region without neurogenic claudication; M47.27 Other spondylosis with radiculopathy, lumbosacral region; M79.605 Pain in left leg; R20.2 Paresthesia of skin; M47.26 Other spondylosis with radiculopathy, lumbar region; F11.20 Opioid dependence, uncomplicated; F17.200 Nicotine dependence, unspecified, uncomplicated; Z88.8 Allergy status to other drugs, medicaments and biological substances; Z79.899 Other long term (current) drug therapy

== ENCOUNTER → 2020-06-05 | Outpatient (CLI) | payer OTHER | LOC: MRI 13:48 | PROVIDERS: ATTEND Nuclear Medicine Nuclear Cardiology | DX: M47.816 Spondylosis without myelopathy or radiculopathy, lumbar region (principal); M48.061 Spinal stenosis, lumbar region without neurogenic claudication; M25.78 Osteophyte, vertebrae; M81.0 Age-related osteoporosis without current pathological fracture; Z98.890 Other specified postprocedural states ==

== ENCOUNTER → 2020-06-13 | Outpatient (CLI) | payer OTHER ==
[~2020-06-13] VITALS: Ht 152.4 cm; Wt 51.3 kg
[~2020-06-13] MED LIST changes: +NORCO5 PO; +PAIN RELIEF EX500 MG PO
--- NOTE | ~2020-06-13 | HPC ---
[facility] [place] [address] PAIN MANAGEMENT CONSULTATION Name: SAMMY ROUSSEAU Room #: REG [facility] M..#: [id number] Admission: 06/13/20 Attend Phys: Cesar Kam DO Discharge: Date of : 37 Report #: [id number] THIS REPORT FOR: cc: Cesar Donaldson James A. DO Johnson, James E. DO ~ DOC #: [id number] cc: DO Cesar Aguilar DO DATE OF SERVICE: 06/13/2020 REFERRING PHYSICIAN: Dr. Cesar Donaldson. CHIEF COMPLAINT: Low back pain, left lower extremity pain and paresthesias. HISTORY OF PRESENT ILLNESS: As you know, the patient is an 85-year-old chronic long-term smoker with chronic low back pain, lower extremity pain, diagnosed as lumbar radiculopathy secondary to progressively worsening central canal stenosis, returning in followup visit with pain intensification, now reporting pain score 7-8/10. The patient states that over the past couple of weeks, her pain has begun to intensify to the point where she was seen in the Emergency Department, advised that there are no new fractures or any concerning findings other than her typical chronic issues, referred back to our clinic to discuss treatment options. The patient places pain score somewhere between 7-8/10. No new injury or trauma. She returns to discuss adjustments in medication management if at all possible. She also has questions in regards to adjunctive treatment options. The patient denies any specific injury or trauma that may have led to symptom increase in intensity. She states she woke one morning and pain became intense at that moment. ALLERGIES: CIPROFLOXACIN. CURRENT MEDICATIONS: Hydrocodone 5/325 once a day p.r.n., fentanyl 25 mcg q.72 hours, omega 3 fish oil 1 tab per day, metoprolol 25 mg per day, pantoprazole 40 mg per day, cholecalciferol 5000 units per day, Xarelto 15 mg once a day, losartan 100 mg once a day, atorvastatin 40 mg per day. SOCIAL HISTORY: The patient continues to smoke 1 pack of tobacco per day, has done this or higher level of smoking for over 60 years. Denies IV or illicit drug use. Denies any chronic alcohol use. She is unaccompanied at today's visit. IMAGING: No new imaging available. PQRS: The patient has known arthritic changes of the cervical spine, lumbar spine, bilateral hands, bilateral knees and hips. No rheumatoid arthritis. She [address] [address] PAIN MANAGEMENT CONSULTATION Name: SAMMY ROUSSEAU Room #: REG [facility].#: [id number] Admission: 06/13/20 Attend Phys: Cesar Kam DO Discharge: Date of : 37 Report #: [id number] is placing pain intensity today 7-09/19. She is a fall risk, but has not had a fall in last 3 months. She is on Xarelto. She is treated for hypertension. She is on chronic opioids and has a low opioid addiction potential based on assessment tool. Pain impact is 43/70. Moderate interference of daily activities secondary to pain. PHYSICAL EXAMINATION: VITAL SIGNS: Blood pressure 111/55, pulse is 95, respiratory rate 20, unlabored. The patient is 98% on room air. Height 5 feet tall, weight 113.2 pounds, BMI calculated 22.1. GENERAL: Well-developed, well-nourished kyphotic and scoliotic 85-year-old female, appears older than stated age, placing current pain score at 7-8/10. Smell strongly of tobacco smoke. HEENT: Normocephalic, atraumatic. Pupils equal, round and responsive. Extraocular muscles are intact. She is wearing a mask in compliance with COVID-19 regulations. EXTREMITIES: Show no clubbing, no cyanosis and no edema. MUSCULOSKELETAL: The patient is kyphotic and scoliotic. Palpatory tenderness over the paraspinal musculature of lower lumbar spine. No spinous process tenderness. Seated straight leg raising negative. Supine straight leg raising positive. Modified Gaenslen's positive for axial low back pain. Gait is extremely antalgic. Stance is kyphotic and scoliotic. ASSESSMENT: 1. Symptomatic lumbar radiculopathy. 2. Spinal stenosis of lumbar spine. 3. Displacement of lumbar intervertebral disk with radiculopathy. 4. Lumbosacral spondylosis with radiculopathy. 5. Lumbar degeneration. 6. Facet arthropathy, lumbar spine. 7. Opioid dependency. 8. Tobacco habituation. 9. Chronic intractable pain. PLAN: 1. The patient returns today in followup visit to discuss increasing back pain and lower extremity symptoms. She states that her symptoms have just began to progressively worsen. She denies injury or trauma. We discussed with the patient our concerns about escalating doses of opioid medication. We did offer to increase by 1 hydrocodone a day, which is placing the patient at the higher end of the CDC recommended guidelines for opioid medications and given her concomitant use of smoking and her diminished lung capacity due to scoliosis and kyphosis, it would not be recommended to continue opioid increases given concern of respiratory depression. Even though we have discussed with the patient many times about smoking cessation, she continues to smoke at least a pack a day. [address] [place] [address] PAIN MANAGEMENT CONSULTATION Name: SAMMY ROUSSEAU Room #: REG [facility] ..#: [id number] Admission: 06/13/20 Attend Phys: Cesar Kam DO Discharge: Date of : 37 Report #: [id number] She returns for adjustments in medication management today. 2. We reviewed the fact that opiate medications are being used to provide analgesia adequate to support activities of daily living, not attempting to achieve a specific pain score on the 0-10 Visual Analog Scale. The current opiate medications are providing sufficient analgesia to allow the patient to participate in activities of daily living. The patient is not exhibiting any aberrant behavior suggestive of drug diversion. The patient is not having any adverse reactions to medications. The patient is not suffering from daytime somnolence or mental acuity changes. The patient is managing opiate-induced constipation with appropriate uulx-ovs-txyejam agents and dietary considerations. The patient was counseled on concern for caution with operating a motor vehicle while using opiate medications. A physical exam was performed and the patient's functional status was evaluated. All patients with back pain were advised against the bed rest greater than 4 days and were advised to return to normal activities. Pain score assessment was noted and the treatment plan was reviewed with the patient. All current medications, both prescribed and OTC were reviewed and reconciled on the electronic medical record. Tobacco screening was accomplished and smoking cessation was advised when indicated. BMI was noted and diet/exercise modification was recommended for all patients following outside normal parameters. I reviewed with the patient today their responsibilities to safeguard prescription medications, reviewed their responsibility to utilize medications only as prescribed by the physician. They are to seek and receive pain medications only from 1 physician group ( [facility]). They are to use 1 pharmacy and keep the clinic informed if they change pharmacies. Their responsibilities include making followup visits in a timely fashion and to avoid abrupt discontinuation of medication usage. Their responsibilities further include bringing their medications (bottles from the pharmacy with residual pills) to the visit for possible confirmation of pill counts and the patient understands it is their responsibility to submit to random drug screens to ensure both that the medications prescribed are present, and that no other controlled substances are present. All prescriptions provided today were generated electronically. 3. The patient was provided a prescription of fentanyl 25 mcg patch 1 patch q.72 hours, given the patient #10 patches to release today, and 4 weeks from today, 2 months' worth of medication. 4. We will increase the patient's hydrocodone p.r.n. from once a day to twice a day. I have given her a prescription of hydrocodone 5/325 one tab p.o. b.i.d. p.r.n. pain, #60 with releases of today and 4 weeks from today. 5. We plan to see the patient back in followup visits in 2 months for medication management. We did discuss adjunctive treatments today. The patient is going to consider those options. These would include chiropractic manipulation, acupuncture therapy, myofascial release. We also discussed the [address] [address] PAIN MANAGEMENT CONSULTATION Name: SAMMY ROUSSEAU Room #: KATHERINE Castillo#: [id number] Admission: 06/13/20 Attend Phys: Cesar Kam DO Discharge: Date of : 37 Report #: [id number] use of CBD oil. She questioned in regards to the use of marijuana if that ever becomes available in the [facility]. We also discussed spinal stem cell treatment. She will look into each of these if she wishes to entertain treatment with those various options. DO MARGARITO Vazquez/PAYAM/ASHKAN By: [id number] Cesar Kam DO /nt
[2020-06-13 09:28] VITALS: BP 111/55
--- NOTE | 2020-06-13 09:43 | NUR ---
Pain Clinic Assessment: 1. History of Osteoarthritis: SPINE HANDS History of Rheumatoid Arthritis: Not Applicable 2. Height: 5 ft. 0 in. 152.4 cm. Weight: 113.2 lb. oz. 51.347 kg. Patient's BMI: 22.1 3. Vital Signs: BP: 111/55 Pulse: 95 Resp: 20 Temp: 02 Sat: 98 ECG Mon: 4. Pain Intensity: 7-8 5. Fall Risk: Dizziness: N Needs help standing or walking: Y Fallen in the last 3 months: N Fall risk comments: 6. Patient on Blood Thinner: xarelto 7. History of Hypertension: Y 8. Opioid Therapy greater than 6 weeks: Y Opiate Contract Signed: 05/21/17 9. Risk Assessment Tool Provided: 0 LOW 10. Functional Assessment Tool: 11. Recreational Drug Use: Never Drug Type: Tobacco Use: Current Every Day Smoker Tobacco Type: Cigarettes Amount or Packs/day: 1 PACK How Many Years: 60 Alcohol Use: Yes Frequency: Quant:
== END ==
LOC: PAIN 08:10
PROVIDERS: ATTEND Anesthesiology Pain Medicine
DX: M47.27 Other spondylosis with radiculopathy, lumbosacral region (principal); M79.605 Pain in left leg; R20.2 Paresthesia of skin; M51.16 Intervertebral disc disorders with radiculopathy, lumbar region; M48.061 Spinal stenosis, lumbar region without neurogenic claudication; F11.20 Opioid dependence, uncomplicated; F17.200 Nicotine dependence, unspecified, uncomplicated; G89.29 Other chronic pain; Z88.8 Allergy status to other drugs, medicaments and biological substances; Z79.899 Other long term (current) drug therapy

== ENCOUNTER → 2020-09-06 | Outpatient (CLI) | payer OTHER ==
[~2020-09-06] VITALS: Ht 152.4 cm; Wt 50.7 kg
[2020-09-06 09:46] VITALS: BP 102/55
--- NOTE | 2020-09-06 10:16 | NUR ---
Pain Clinic Assessment: 1. History of Osteoarthritis: SPINE HANDS History of Rheumatoid Arthritis: Not Applicable 2. Height: 5 ft. 0 in. 152.4 cm. Weight: 111.8 lb. oz. 50.712 kg. Patient's BMI: 21.8 3. Vital Signs: BP: 102/55 Pulse: 110 Resp: 20 Temp: 02 Sat: 97 ECG Mon: 4. Pain Intensity: 4 5. Fall Risk: Dizziness: N Needs help standing or walking: Y Fallen in the last 3 months: N Fall risk comments: 6. Patient on Blood Thinner: xarelto 7. History of Hypertension: Y 8. Opioid Therapy greater than 6 weeks: Y Opiate Contract Signed: 05/21/17 9. Risk Assessment Tool Provided: 0 LOW 10. Functional Assessment Tool: 11. Recreational Drug Use: Never Drug Type: Tobacco Use: Current Every Day Smoker Tobacco Type: Cigarettes Amount or Packs/day: 1 How Many Years: 60 Alcohol Use: Yes Frequency: Quant:
--- NOTE | 2020-09-07 08:22 | HPC ---
[facility] [address] [place] [address] PAIN MANAGEMENT CONSULTATION Name: SAMMY ROUSSEAU Room #: REG [facility] M.Nadia.#: [id number] Admission: 09/06/20 Attend Phys: Maureen Garrido Discharge: Date of : 37 Report #: [id number] THIS REPORT FOR: cc: Cesar Donaldson James A. DO Hocker, Amanda CNS ~ cc: Cesar Donaldson DO, James E. Johnson, DO DATE OF SERVICE: 09/06/2020 CHIEF COMPLAINT: Low back pain, left lower extremity pain and paresthesias. HISTORY OF PRESENT ILLNESS: As you know, this is a pleasant 85-year-old female who returns to the pain clinic today for renewal of her medications. She continues to have mid to low back pain, has worsening lumbar radiculopathy and central canal stenosis. The patient states that her pain is worse with any bending or any prolonged standing or walking. She reports making her dinner is very painful and unfortunately she has had to rely on Meals on Wheels recently for her food. She reports they are healthy, but not tasty. She reports that her fentanyl patch as well as sitting and lying down have been beneficial. She states sometimes she forgets to change her patch in a timely fashion and she noticed her pain does definitely increase at that time. Today, she rates her pain score a 4/10 and describes it as an aching-clutching sensation in her back with certain movements. She does deny daytime somnolence, feels like she does not have any energy, but believes that is due to aging. She also denies constipation issues. ALLERGIES: CIPRO. CURRENT LIST OF MEDICATIONS: Fentanyl 25 mcg patch every 72 hours, hydrocodone 5/325 b.i.d. p.r.n., Tylenol Extra Strength, fish oil, metoprolol, Protonix, vitamin D, Xarelto, losartan, atorvastatin. PQRS: 1. She has arthritic changes in her cervical and lumbar spine, bilateral hands, knees and hips. Denies any rheumatoid arthritis. Height is 5 feet, weight is 111, BMI is 21. 2. Vital signs 102/55, pulse is 110, respirations 20, oxygen sat is 97%. Pain score is 4/10. 3. Denies dizziness, does use a walker for ambulation and has not fallen in the last 3 months. 4. The patient is on Xarelto as well as medications for hypertension. 5. Opioid therapy is greater than 6 weeks; therefore, an opioid signed contract is on the chart. 6. Risk assessment is low. Functional assessment is 43/70. 7. Recreational drug use, she denies. She is a current smoker of 1 pack of cigarettes a day and does report alcohol use. [address] [address] PAIN MANAGEMENT CONSULTATION Name: SAMMY ROUSSEAU Room #: REG [facility].#: [id number] Admission: 09/06/20 Attend Phys: Maureen Garrido Discharge: Date of : 37 Report #: [id number] According to the prescription monitoring system, she is filling appropriately in a timely fashion. She is due to fill her medications slightly past due. We will collect a random drug screen on her at her next visit. PHYSICAL EXAMINATION: GENERAL: This is an alert and orientated 85-year-old female who appears her stated age, rating her pain score today at 4/10. HEENT: Normocephalic, atraumatic. Extraocular eye muscles are intact. Mucous membranes are moist. She is wearing a mask. MUSCULOSKELETAL: She has a kyphotic and has scoliosis. Uses a walker for ambulation and her gait is extremely antalgic. She has tenderness over the paraspinal musculature of the lumbar spine. Seated straight leg raising is negative. Modified Gaenslen is positive for axial low back pain. ASSESSMENT: 1. Symptomatic lumbar radiculopathy. 2. Spinal stenosis of lumbar spine. 3. Displacement of a lumbar intervertebral disk with radiculopathy. 4. Lumbosacral spondylosis with radiculopathy. 5. Lumbar degeneration. 6. Facet arthroscopy of the lumbar spine. 7. Opioid dependency. 8. Chronic intractable pain, utilizing scheduled opioid medications. We reviewed the fact that opiate medications are being used to provide analgesia adequate to support activities of daily living, not attempting to achieve a specific pain score on the 0-10 Visual Analog Scale. The current opiate medications are providing sufficient analgesia to allow the patient to participate in activities of daily living. The patient is not exhibiting any aberrant behavior suggestive of drug diversion. The patient is not having any adverse reactions to medications. The patient is not suffering from daytime somnolence or mental acuity changes. The patient is managing opiate-induced constipation with appropriate uytx-qyu-fuwoatg agents and dietary considerations. The patient was counseled on concern for caution with operating a motor vehicle while using opiate medications. A physical exam was performed and the patient's functional status was evaluated. All patients with back pain were advised against the bed rest greater than 4 days and were advised to return to normal activities. Pain score assessment was noted and the treatment plan was reviewed with the patient. All current medications, both prescribed and OTC were reviewed and reconciled on the electronic medical record. Tobacco screening was accomplished and smoking cessation was advised when indicated. BMI was noted and diet/exercise modification was recommended for all patients following outside normal parameters. [facility] [address] [place] [address] PAIN MANAGEMENT CONSULTATION Name: SAMMY ROUSSEAU Room #: REG [facility].#: [id number] Admission: 09/06/20 Attend Phys: Maureen Garrido Discharge: Date of : 37 Report #: [id number] I reviewed with the patient today their responsibilities to safeguard prescription medications, reviewed their responsibility to utilize medications only as prescribed by the physician. They are to seek and receive pain medications only from 1 physician group ( [facility]). They are to use 1 pharmacy and keep the clinic informed if they change pharmacies. Their responsibilities include making followup visits in a timely fashion and to avoid abrupt discontinuation of medication usage. Their responsibilities further include bringing their medications (bottles from the pharmacy with residual pills) to the visit for possible confirmation of pill counts and the patient understands it is their responsibility to submit to random drug screens to ensure both that the medications prescribed are present, and that no other controlled substances are present. All prescriptions provided today were generated electronically. PLAN: 1. We discussed treatment options with the patient today. The patient finds her fentanyl patch and hydrocodone beneficial in helping decrease her pain. We will continue these medications and send them electronically for 2 months. 2. We did discuss her lack of energy and ways to try and encourage building her strength back up. As one would be sitting at the counter working on dinner instead of standing, which is more painful for her. She does utilize Meals on Wheels and I also discussed several grocery stores do have meal preparation that they can purchase and just heat up in her microwave or oven. 3. We will collect a random drug screen on her in October at her next visit. Time spent with the patient in consultation, reviewing recent studies and clinical exam and correlation of findings 15 minutes. Time spent reviewing the chart and any pertinent medical documentation including physician notes and imaging as well as prescription monitoring system, side effects of medication and list of medications, 5 minutes. Time spent sending scripts electronically with collaborating doctor, Dr. Cesar Kam, documentation of visit and treatment plan, 5 minutes. Total time spent 25 minutes. <ELECTRONICALLY SIGNED> By: Maureen Garrido 09/07/20 0822 [id number] Maureen Garrido /nt
== END ==
LOC: PAIN 06:55
PROVIDERS: ATTEND Clinical Nurse Specialist Adult Health
DX: G89.29 Other chronic pain (principal); M51.16 Intervertebral disc disorders with radiculopathy, lumbar region; M48.061 Spinal stenosis, lumbar region without neurogenic claudication; M47.27 Other spondylosis with radiculopathy, lumbosacral region; Z88.8 Allergy status to other drugs, medicaments and biological substances; Z79.891 Long term (current) use of opiate analgesic; Z79.899 Other long term (current) drug therapy

== ENCOUNTER → 2020-10-09 | Outpatient (CLI) | payer OTHER | LOC: SJCVCIMAG 09:43 | PROVIDERS: ATTEND Internal Medicine Cardiovascular Disease | DX: R94.31 Abnormal electrocardiogram [ECG] [EKG] (principal); I51.7 Cardiomegaly; R00.0 Tachycardia, unspecified; I65.23 Occlusion and stenosis of bilateral carotid arteries; I42.9 Cardiomyopathy, unspecified; E78.00 Pure hypercholesterolemia, unspecified; I26.99 Other pulmonary embolism without acute cor pulmonale; I34.0 Nonrheumatic mitral (valve) insufficiency; I27.20 Pulmonary hypertension, unspecified; J44.9 Chronic obstructive pulmonary disease, unspecified; F17.210 Nicotine dependence, cigarettes, uncomplicated; Z86.711 Personal history of pulmonary embolism; Z79.01 Long term (current) use of anticoagulants; Z79.899 Other long term (current) drug therapy; Z88.8 Allergy status to other drugs, medicaments and biological substances ==

== ENCOUNTER → 2020-11-21 | Outpatient (CLI) | payer OTHER ==
[~2020-11-21] VITALS: Ht 152.4 cm; Wt 51.2 kg
[~2020-11-21] MED LIST changes: +CEPHALEXIN500 MG PO; +FENTANYL1 EACH TRANSDERM; +LIPITOR 40 MG T40 M1 PO; +METOPROLOL SUCC25 M1 PO
[2020-11-21 10:09] VITALS: BP 107/68
--- NOTE | 2020-11-21 10:14 | NUR ---
Pain Clinic Assessment: 1. History of Osteoarthritis: SPINE HANDS History of Rheumatoid Arthritis: Not Applicable 2. Height: 5 ft. in. 152.4 cm. Weight: 112.8 lb. oz. 51.166 kg. Patient's BMI: 22.0 3. Vital Signs: BP: 107/68 Pulse: 105 Resp: 14 Temp: 02 Sat: 95 ECG Mon: 4. Pain Intensity: 8 5. Fall Risk: Dizziness: N Needs help standing or walking: N Fallen in the last 3 months: N Fall risk comments: 6. Patient on Blood Thinner: xarelto 7. History of Hypertension: Y 8. Opioid Therapy greater than 6 weeks: Y Opiate Contract Signed: 05/21/17 9. Risk Assessment Tool Provided: 0 LOW 10. Functional Assessment Tool: 11. Recreational Drug Use: Never Drug Type: Tobacco Use: Current Every Day Smoker Tobacco Type: Cigarettes Amount or Packs/day: 1 How Many Years: Alcohol Use: Yes Frequency: Quant:
--- NOTE | 2020-11-22 08:15 | HPC ---
[facility] [address] [place] [address] PAIN MANAGEMENT CONSULTATION Name: SAMMY ROUSSEAU Room #: REG [facility] M..#: [id number] Admission: 11/21/20 Attend Phys: Maureen Garrido Discharge: Date of : 39 Report #: [id number] THIS REPORT FOR: cc: Cesar Donaldson James A. DO Hocker, Amanda CNS ~ cc: Cesar Donaldson DO, James E. Johnson, DO DATE OF SERVICE: 11/21/2020 CHIEF COMPLAINT: Low back pain, left lower extremity pain and paresthesias and mid thoracic pain. HISTORY OF PRESENT ILLNESS: As you know, this is a pleasant 85-year-old female who returns to the pain clinic today for renewal of her medications. Today, she is reporting pain in her upper thoracic area that radiates around to her chest. She reports ongoing low back pain as well. She reports attending her grandson's wedding on Friday. Friday when she woke up, she was having terrible thoracic pain. She reports a pain score of 8/10 today; states that it is pounding when she takes deep breaths and sharp at times; otherwise, her normal aching sensation in her low back. She reports that she did not fall or twist that she can remember. She was just very active, walking quite a bit at the wedding. She is very kyphotic. She does continue to smoke and this may be a possible another compression fracture based on her symptoms. She reports the fentanyl patch and hydrocodone are helpful in alleviating her low back pain and she has been utilizing Tylenol as well since Friday when this pain started. She denies any constipation or daytime somnolence as a result of her medications. ALLERGIES: CIPRO. CURRENT LIST OF MEDICATIONS: Fentanyl 25 mcg patch every 3 days, hydrocodone 5/325 b.i.d., Tylenol Extra Strength p.r.n., omega 3, Toprol, Protonix, vitamin D3, Xarelto, losartan and Lipitor. PQRS: 1. 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 Denies any rheumatoid arthritis. Height is 5 feet, weight is 112, BMI is 22. 2. Vital signs: Blood pressure 107/68, pulse is 105, respirations 14, oxygen sat is 95%. 3. Pain score is 8/10. 4. Denies dizziness, does not need help walking or standing, has not fallen in the last 3 months. 5. The patient is on Xarelto as well as medications for hypertension. 6. Opioid therapy is greater than 6 weeks; therefore, an opioid signed contract is on the chart. 7. Risk assessment is low. Functional assessment is 43/70. [address] [address] PAIN MANAGEMENT CONSULTATION Name: SAMMY ROUSSEAU Room #: REG [facility] M.Nadia.#: [id number] Admission: 11/21/20 Attend Phys: Maureen Garrido Discharge: Date of : 37 Report #: [id number] 8. Recreational drug use in the past. She currently smokes a pack of cigarettes a day and does drink alcohol. According to the prescription monitoring system, the patient is due to fill her medications. She does fill them in a timely fashion. We will collect a random drug screen on the patient today as well. She reports taking her medications this morning and I have visualized the fentanyl patch. PHYSICAL EXAMINATION: GENERAL: This is a well-developed, well-nourished, well-hydrated, very kyphotic scoliotic 85-year-old female who is rating her pain score today at 8/10. HEENT: Normocephalic, atraumatic. Extraocular eye muscles are intact. She is wearing a mask for COVID precautions. EXTREMITIES: No clubbing, no cyanosis, no edema. MUSCULOSKELETAL: Lower extremity strength is weakened bilaterally. Muscle bulk is equal and symmetrical. Supine straight leg raising is positive. She has tenderness in the upper thoracic region radiating around to her chest wall, worse with inhalation. Does have tenderness in the lumbosacral region as well. ASSESSMENT: 1. Symptomatic lumbar radiculopathy. 2. Spinal stenosis of lumbar spine. 3. Displacement of lumbar intervertebral disk with radiculopathy. 4. Possible compression fracture with history of multiple kyphoplasties. 5. Lumbosacral spondylosis with radiculopathy. 6. Facet arthropathy of the lumbar spine. 7. Tobacco habituation. 8. Opioid dependency. 9. Chronic intractable pain, utilizing scheduled opioid medications. PLAN: 1. We discussed treatment options with the patient today. It is possible based on the patient's symptoms that she may have another compression fracture in her thoracic spine. We will order a thoracic spine series and proceed from there. I explained to the patient that she may have to undergo a CT scan or MRI if the radiologist believes that is necessary for proper revision of a compression fracture. I also informed the patient that depending on the site of the compression fracture, it may not be amendable to kyphoplasty and she would need to wear a TLSO brace. The patient has these at home, but due to her kyphotic spine, it is very difficult to wear and painful. I did discuss tincture of time will slowly heal the compression fracture if in fact she has one that is not fixed by vertebroplasty. At the time of this dictation, we have no radiology report back, but based on the findings, Dr. Kam and I were able to view. We do not see a new compression fracture. We will notified patient after report has been finalized. 2. I encouraged the patient to use the lidocaine patches that she may buy [facility] [address] [place] [address] PAIN MANAGEMENT CONSULTATION Name: SAMMY ROUSSEAU Room #: REG MARCELINO Castillo#: [id number] Admission: 11/21/20 Attend Phys: Maureen Garrido Discharge: Date of : 37 Report #: [id number] to nutrition helper in some of her discomfort in the thoracic area as well as utilizing braces that she does have at home. 3. We will continue her fentanyl 25 mcg patch every 72 hours. Scripts sent electronically for today and 4-week supply as well as her hydrocodone 5/325, #60. 4. The patient did submit a random urine drug screen for us today, taking her medications today. Time spent in patient consultation, reviewing recent studies and clinical notes and correlation of findings of physical examination 17 minutes. Time spent reviewing the chart and any pertinent medical documentation including physician notes and imaging as well as prescription monitoring system, side effects of medication and current medication list 5 minutes. Time spent and sending electronic prescriptions with collaborating physician, Dr. Cesar Kam and documentation of visit and plan of treatment 5 minutes. Total time spent 27 minutes. <ELECTRONICALLY SIGNED> By: Maureen Garrido 11/22/20 0815 1304 0030 Maureen Garrido /melissa
== END ==
LOC: PAIN 06:54 → RAD 06:54 → PAIN 07:59
PROVIDERS: ATTEND Clinical Nurse Specialist Adult Health
DX: M48.061 Spinal stenosis, lumbar region without neurogenic claudication (principal); M51.16 Intervertebral disc disorders with radiculopathy, lumbar region; M47.27 Other spondylosis with radiculopathy, lumbosacral region; M47.26 Other spondylosis with radiculopathy, lumbar region; G89.29 Other chronic pain; M25.78 Osteophyte, vertebrae; F11.20 Opioid dependence, uncomplicated; Z72.89 Other problems related to lifestyle; Z79.899 Other long term (current) drug therapy; Z88.8 Allergy status to other drugs, medicaments and biological substances

== ENCOUNTER 2020-11-23 06:01 | Emergency (ER) | payer OTHER ==
[~2020-11-23] VITALS: Ht 152.4 cm; Wt 51.3 kg
--- NOTE | ~2020-11-23 | EMS ---
[address] [address] EMS Patient Care Report Name: SAMMY ROUSSEAU Room #: PRE M.R.#: [id number] Admission: Attend Phys: Discharge: Date of : 37 Report #: [id number] THIS REPORT FOR: //name// Report Transmitted: 11/23/2020 05:40 EMS Care Summary [facility] MED-ACT Incident [id number] @ 11/23/2020 05:08 Incident Location [address] [place] [address] Patient SAMMY ROUSSEAU Female, 85 Years 1935 Patient Address [address] [place] [address] Patient History Cardiomyopathy, Patient Allergies No known allergies, Patient Medications Hydrocodone, Xarelto, Fentanyl, Chief Complaint back pain Disposition Transported No Lights/B[place]keye Dispatch Reason Back Pain (Non-Traumatic) Transported To [facility] Narrative Upon EMS arrival pt was laying supine in bed. Pt was alert and oriented. Pt states that she has been having back pain since Friday. Pt states that she attended a friday and did a lot of walking and her back has hurt since then. Pt states that she went Friday to the pain clinic for the back pain and [address] [address] EMS Patient Care Report Name: SAMMY ROUSSEAU Room #: PRE Jonathan#: [id number] Admission: Attend Phys: Discharge: Date of : 37 Report #: [id number] they sent her for an X-ray but it didn't show anything. Pt states that the pain has just proceeded to get worse. Pt states that it hurts worse when she moves. Pain doesnt radiate. Pt describes it as a sharp pain. Pt states that she has been using her fentanyl patch and taking hydrocodone but it doesnt seem to help. Pt states that the pain is in her upper back. Pt was able to take a few steps to the cot and was secured by all straps. Pt was transported to [facility] at her request. Pts vitals stable and be slept during transport. Pt was taken to room 6 and was moved to the ED bed by EMS and ED staff. Report given to MD Initial Vitals @05:23P: 115,SpO2: 94, @05:33P: 116,BP: 108/66,SpO2: 95, @05:51P: 112,BP: 81/42,SpO2: 81, @05:20P: 82,R: 16,BP: 116/76,Pain: 4/10,GCS: 15,Temp: 97.8F,SpO2: 98,Revised Trauma: 12, Impression Back Pain Procedures @05:39Surgical Mask on PatientResponse: Unchanged@05:2312-Lead ECG Timeline 05:06,Call Received 05:06,Psap Call 05:08,Dispatched 05:09,En Route 05:18,On Scene 05:19,At Patient 05:20,BP: 116/76 M,PULSE: 82,RR: 16 R,SPO2: 98 Ox,ETCO2: ,BG: ,PAIN: 4,GCS: 15, 05:23,12-Lead ECG, 05:23,BP: / M,PULSE: 115,RR: R,SPO2: 94 Ox,ETCO2: ,BG: ,PAIN: ,GCS: , 05:33,BP: 108/66 M,PULSE: 116,RR: R,SPO2: 95 Ox,ETCO2: ,BG: ,PAIN: ,GCS: , 05:33,Depart Scene 05:39,Surgical Mask on Patient,Response: Unchanged 05:51,BP: 81/42 M,PULSE: 112,RR: R,SPO2: 81 Ox,ETCO2: ,BG: ,PAIN: ,GCS: , 05:57,At Destination 06:12,Call Closed Disclaimer v1.1 Copyright 2020 [employer] This EMS Care Summary contains data elements from the applicable legal record (which may be displayed differently). It is designed to provide pertinent information for the following purposes: continuity of care, clinical quality, and state data reporting. The complete legal [place] [address] EMS Patient Care Report Name: SOHAMSAMMY SOTO Room #: PRE M.R.#: [id number] Admission: Attend Phys: Discharge: Date of : 37 Report #: [id number] and administrators of the receiving hospital in [facility]'s Patient Tracker. All data is provided "as is."
[~2020-11-23 06:01] MED LIST changes: -CEPHALEXIN500 MG PO; -LIPITOR 40 MG T40 M1 PO; -METOPROLOL SUCC25 M1 PO
[2020-11-23 06:32] LABS: ABSOLUTE NEUTROPHILS 9.9 thou/uL (1.4-8.2); BASOPHILS 0.4 % (0.0-2.0); EOSINOPHILS 1.5 % (0.0-3.0); HEMATOCRIT 38.5 % (37.0-47.0); HEMOGLOBIN 12.5 gm/dL (12.0-15.0); LYMPHOCYTES 4.8 % (24.0-44.0); MCH 29.1 pg (26.0-34.0); MCHC 32.5 g/dL (28.0-37.0); MCV 89.3 fL (80.0-100.0); MONOCYTES 7.5 % (1.0-8.0); PLATELET COUNT 303 thou/uL (150-400); POLYS 85.8 % (36.0-66.0); RBC 4.32 mil/uL (4.20-5.00); RDW 16.2 % (10.5-14.5); WBC 11.6 thou/uL (4.0-11.0)
[2020-11-23 06:40] LABS: CALCIUM 8.9 mg/dL (8.5-10.1); CREATININE 1.2 mg/dL (0.6-1.0); POTASSIUM 4.3 mmol/L (3.5-5.1)
[2020-11-23 06:50] LABS: ALBUMIN 2.8 g/dL (3.4-5.0); TOTAL BILIRUBIN 0.4 mg/dL (0.2-1.0); TOTAL PROTEIN 6.9 g/dL (6.4-8.2)
[2020-11-23 06:51] LABS: D-DIMER 0.72 ug/mLFEU (0.19-0.50); INR 1.28; PROTIME 13.8 Seconds (10.5-12.1)
--- NOTE | 2020-11-23 07:26 | EKG ---
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 : 1935 Requested By: Kasia Garcia Order Number: [id number] MD: Erick Brown Measurements Intervals [place] Rate: 106 P: 41 FL: 116 QRS: -17 QRSD: 91 T: 37 QT: 344 QTc: 457 Interpretive Statements Sinus tachycardia Probable LVH with secondary repol abnrm Compared to ECG 11/04/2019 18:25:44 Ventricular premature complex(es) no longer present Electronically Signed On 11-23-2020 7:26:20 CDT by Erick Brown [email or web address] <ELECTRONICALLY SIGNED> By: Erick Brown MD, [facility] 11/23/20 0726 0632 0632 Erick Brown MD, FACC /EPI
[2020-11-23 08:06] LABS: URINE BILIRUBIN NEGATIVE (Negative); URINE BLOOD 1+ (Negative); URINE COLOR YELLOW; URINE GLUCOSE-RANDOM* NEGATIVE (Negative); URINE KETONES NEGATIVE (Negative); URINE PROTEIN (DIPSTICK) NEGATIVE (Negative); URINE SPECIFIC GRAVITY 1.015 (1.005-1.035); URINE UROBILINOGEN 0.2 E.U./dl (0.2-1.0)
[2020-11-23 08:10] LABS: URINE CLARITY HAZY; URINE LEUKOCYTES-REFLEX 1+ (Negative); URINE NITRITE-REFLEX POSITIVE (Negative)
[2020-11-23] MEDS ORDERED: LIPITOR 40 MG T40 M1 PO (08:21)
[2020-11-23] MEDS ORDERED: METOPROLOL SUCC25 M1 PO (08:22)
[2020-11-23 08:32] LABS: BACTERIA-REFLEX >30 Many /HPF (None Seen); CASTS None Seen /LPF (None Seen); CRYSTALS None Seen /LPF (None Seen); SQUAMOUS >10 Many /LPF (0-3)
[2020-11-23 08:33] LABS: URINE RBC 1-2 Rare /HPF (NONE SEEN)
[2020-11-23] MEDS ORDERED: CEPHALEXIN500 MG PO (09:52)
[2020-11-23 10:15] VITALS: BP 100/49
== END 2020-11-23 10:15 | disposition home or self-care (01) ==
LOC: ER 06:01
PROVIDERS: Emergency Medicine
DX: M48.54XA Collapsed vertebra, not elsewhere classified, thoracic region, initial encounter for fracture (principal); M54.6 Pain in thoracic spine; N39.0 Urinary tract infection, site not specified; I42.9 Cardiomyopathy, unspecified; I10 Essential (primary) hypertension; E78.5 Hyperlipidemia, unspecified; Z86.73 Personal history of transient ischemic attack (TIA), and cerebral infarction without residual deficits; M81.0 Age-related osteoporosis without current pathological fracture; Z98.890 Other specified postprocedural states; Z79.891 Long term (current) use of opiate analgesic; Z79.1 Long term (current) use of non-steroidal anti-inflammatories (NSAID); Z79.899 Other long term (current) drug therapy; Z88.1 Allergy status to other antibiotic agents

== ENCOUNTER → 2021-01-24 | Outpatient (CLI) | payer OTHER ==
[~2021-01-24] VITALS: Ht 152.4 cm; Wt 49.7 kg
[~2021-01-24] MED LIST changes: +CEPHALEXIN500 MG PO; +LIPITOR 40 MG T40 M1 PO; +METOPROLOL SUCC25 M1 PO
[2021-01-24 13:22] VITALS: BP 116/65
--- NOTE | 2021-01-24 13:31 | NUR ---
Pain Clinic Assessment: 1. History of Osteoarthritis: SPINE HANDS History of Rheumatoid Arthritis: Not Applicable 2. Height: 5 ft. 0 in. 152.4 cm. Weight: 109.6 lb. oz. 49.714 kg. Patient's BMI: 21.4 3. Vital Signs: BP: 116/65 Pulse: 70 Resp: 20 Temp: 02 Sat: 96 ECG Mon: 4. Pain Intensity: 4 5. Fall Risk: Dizziness: N Needs help standing or walking: Y Fallen in the last 3 months: N Fall risk comments: 6. Patient on Blood Thinner: xarelto 7. History of Hypertension: Y 8. Opioid Therapy greater than 6 weeks: Y Opiate Contract Signed: 05/21/17 9. Risk Assessment Tool Provided: 0 LOW 10. Functional Assessment Tool: 11. Recreational Drug Use: Never Drug Type: Tobacco Use: Current Every Day Smoker Tobacco Type: Cigarettes Amount or Packs/day: 1 PCK How Many Years: Alcohol Use: No Frequency: Quant:
== END ==
LOC: PAIN 10:28
PROVIDERS: ATTEND Clinical Nurse Specialist Adult Health
DX: M51.16 Intervertebral disc disorders with radiculopathy, lumbar region (principal); M47.26 Other spondylosis with radiculopathy, lumbar region; M48.061 Spinal stenosis, lumbar region without neurogenic claudication; M79.662 Pain in left lower leg; Z88.8 Allergy status to other drugs, medicaments and biological substances; Z79.899 Other long term (current) drug therapy

== ENCOUNTER → 2021-03-27 | Outpatient (CLI) | payer OTHER ==
[~2021-03-27] VITALS: Ht 152.4 cm; Wt 49.4 kg
[2021-03-27 09:55] VITALS: BP 100/59
--- NOTE | 2021-03-27 10:17 | NUR ---
Pain Clinic Assessment: 1. History of Osteoarthritis: SPINE HANDS History of Rheumatoid Arthritis: Not Applicable 2. Height: 5 ft. 0 in. 152.4 cm. Weight: 108.8 lb. oz. 49.351 kg. Patient's BMI: 21.2 3. Vital Signs: BP: 100/59 Pulse: 99 Resp: 14 Temp: 02 Sat: 98 ECG Mon: 4. Pain Intensity: 6-7 5. Fall Risk: Dizziness: N Needs help standing or walking: Y Fallen in the last 3 months: N Fall risk comments: 6. Patient on Blood Thinner: xarelto 7. History of Hypertension: Y 8. Opioid Therapy greater than 6 weeks: Y Opiate Contract Signed: 05/21/17 9. Risk Assessment Tool Provided: 0 LOW 10. Functional Assessment Tool: 11. Recreational Drug Use: Never Drug Type: Tobacco Use: Current Every Day Smoker Tobacco Type: Cigarettes Amount or Packs/day: How Many Years: Alcohol Use: No Frequency: Quant:
== END ==
LOC: PAIN 07:02
PROVIDERS: ATTEND Clinical Nurse Specialist Adult Health
DX: M51.16 Intervertebral disc disorders with radiculopathy, lumbar region (principal); M48.061 Spinal stenosis, lumbar region without neurogenic claudication; Z79.899 Other long term (current) drug therapy; Z88.8 Allergy status to other drugs, medicaments and biological substances

== ENCOUNTER 2021-04-08 18:06 | Inpatient (IN) | payer OTHER ==
[~2021-04-08] VITALS: Ht 152.4 cm; Wt 49.9 kg
[2021-04-08 18:10] VITALS: BP 173/84
[2021-04-08 18:37] LABS: ABSOLUTE NEUTROPHILS 4.7 thou/uL (1.4-8.2); BASOPHILS 0.9 % (0.0-2.0); EOSINOPHILS 1.5 % (0.0-3.0); HEMATOCRIT 39.6 % (37.0-47.0); HEMOGLOBIN 12.9 gm/dL (12.0-15.0); LYMPHOCYTES 27.2 % (24.0-44.0); MCH 30.5 pg (26.0-34.0); MCHC 32.7 g/dL (28.0-37.0); MCV 93.1 fL (80.0-100.0); MONOCYTES 7.4 % (1.0-8.0); PLATELET COUNT 280 thou/uL (150-400); RBC 4.25 mil/uL (4.20-5.00); RDW 13.8 % (10.5-14.5); WBC 7.4 thou/uL (4.0-11.0)
[2021-04-08 18:47] LABS: CALCIUM 9.7 mg/dL (8.5-10.1); CREATININE 0.9 mg/dL (0.6-1.0)
[2021-04-08 18:51] LABS: APTT 28.3 Seconds (24.5-32.8); INR 1.05; PROTIME 11.4 Seconds (10.5-12.1)
[2021-04-08 18:54] LABS: ALBUMIN 3.4 g/dL (3.4-5.0); TOTAL BILIRUBIN 0.4 mg/dL (0.2-1.0); TOTAL PROTEIN 7.4 g/dL (6.4-8.2)
[2021-04-08 19:11] LABS: URINE BILIRUBIN NEGATIVE (Negative); URINE BLOOD 1+ (Negative); URINE CLARITY CLEAR; URINE COLOR YELLOW; URINE GLUCOSE-RANDOM* NEGATIVE (Negative); URINE KETONES NEGATIVE (Negative); URINE LEUKOCYTES-REFLEX NEGATIVE (Negative); URINE NITRITE-REFLEX NEGATIVE (Negative); URINE PROTEIN (DIPSTICK) NEGATIVE (Negative); URINE SPECIFIC GRAVITY 1.015 (1.005-1.035); URINE UROBILINOGEN 0.2 E.U./dl (0.2-1.0)
[2021-04-08 19:20] LABS: BACTERIA-REFLEX 1-9 Few /HPF (None Seen); CASTS None Seen /LPF (None Seen); CRYSTALS None Seen /LPF (None Seen); SQUAMOUS 0-3 Few /LPF (0-3); URINE RBC 3-10 Few /HPF (NONE SEEN); URINE WBC-REFLEX None Seen /HPF (0-5)
[2021-04-08 21:13] VITALS: BP 149/80
[2021-04-08 22:59] VITALS: BP 123/95
[2021-04-08 23:29] VITALS: BP 141/79
[2021-04-09 05:35] LABS: CALCIUM 8.7 mg/dL (8.5-10.1); CREATININE 0.9 mg/dL (0.6-1.0); POTASSIUM 4.3 mmol/L (3.5-5.1)
--- NOTE | 2021-04-09 07:09 | EKG ---
[facility] [place] [address] ELECTROCARDIOGRAM REPORT Name: SAMMY ROUSSEAU Room #: 433-I ADM IN M.R.#: [id number] Admission: 04/08/21 Attend Phys: Vu Brownlee Discharge: Date of : 37 Report #: [id number] [facility] ED Test Date: 2021-04-08 Test Time: 18:13:54 Pat Name: SAMMY ROUSSEAU Department: Room: [facility] Gender: F Side Laster Tack: TJ : 1935 Requested By: Oneil Barnes Order Number: [id number] MD: Erick Brown Measurements Intervals [place] Rate: 113 P: 68 NM: 128 QRS: -4 QRSD: 98 T: 60 QT: 343 QTc: 471 Interpretive Statements Sinus tachycardia Atrial premature complex Probable left atrial enlargement LVH with secondary repolarization abnormality Compared to ECG 11/23/2020 06:32:23 Atrial premature complex(es) now present Electronically Signed On 04-09-2021 7:09:43 BOILER ASSISTANT OPERATOR by Erick Brown [email or web address] <ELECTRONICALLY SIGNED> By: Erick Brown MD, [facility] 04/09/21 0709 12 12 Erick Brown MD, FAC /EPI
--- NOTE | 2021-04-09 08:12 | NUR ---
PT ARRIVED ON UNIT AT 2330 FROM ER. ADMITTED FROM HOME WITH N/V AND ABDOMINAL PAIN. MORPHINE PROVIDING PAIN RELIEF. ZOFRAN NAUSEA RELIEF. RESTING COMFORTABLY. NO NEEDS VOICED. CALL LIGHT WITHIN REACH. FREQUENT OSERVATION.
[2021-04-09 08:35] VITALS: BP 133/57
--- NOTE | 2021-04-09 10:13 | NUR ---
PATIENT ASKED TO GO TO THE BATH ROOM. HELP WITH ONE ASSIST BUT PATIENT WAS HOLDING ON TO THE WALL FOR SUPORT.
[2021-04-09 12:56] VITALS: BP 148/87
[2021-04-09 16:00] VITALS: BP 143/79
--- NOTE | 2021-04-09 18:20 | NUR ---
PATIENTS FAMILY IN TO SEE HERE TODAY. PATIENT IS BED UP TO THE BATHROOM A FEW TIME TODAY WITH STANDBY ASS. PATIENT IS RESTING IN BED WITH CALL MORTON IN REACH.
[2021-04-09 19:21] VITALS: BP 135/70
--- NOTE | 2021-04-13 11:23 | PATH ---
[facility] [address] [place] [address] PATHOLOGY RPT PROCEDURE Name: SAMMY TANNER Room #: 433-I DIS IN M.R.#: [id number] Admission: 04/08/21 Date of : 39 Discharge: 04/10/21 Report #: [id number] Path Case #: [id number] [facility] Accession Number: [id number] . 01 Material submitted: . gastrointestinal site - RANDOM GASTRIC BIOPSIES R/O H. PYLORI . 01 Clinical history: . ESOPHAGOGASTRODUODENOSCOPY ABDOMINAL PAIN, NAUSE AND VOMITING, DYSPHAGIA GASTRITIS . 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 - H. pylori immunohistochemical stain is negative for H. pylori-like organism. (LEXUS/db; 04/12/2021) LBQ 04/12/2021 1356 Local . 02 Electronically signed: . Sheryl Evangelista MD, Pathologist NPI- [id number] . 01 Gross description: . The specimen is received in formalin, labeled "Sammy Tanner, random gastric bx R/O H. pylori". The specimen is additionally labeled on the requisition as, "random gastric biopsies R/O H. pylori". Received are 4, kulkarni, soft tissue fragments, ranging in size from 0.3-0.5 cm, in greatest dimension. The specimen is entirely submitted in cassette A1. (JGG; 04/11/2021) JGG/JGG 04/11/2021 1534 Local . 02 Pathologist provided ICD-10: K29.50 . 02 CPT . 438956, [id number] Specimen Comment: A courtesy copy of this report has been sent to [phone] Specimen Comment: [phone], Specimen Comment: Report sent to , DR MORRIS / DR LITTLEJOHN Specimen Comment: A duplicate report has been generated due to demographic updates. Performed at: [address] [facility], [place] [id number] [place] [address] PATHOLOGY RPT PROCEDURE Name: SAMMY TANNER Room #: 433-I DIS IN M.R.#: [id number] Admission: 04/08/21 Date of : 39 Discharge: 04/10/21 Report #: [id number] Path Case #: [id number] MD Андрей Thibodeaux MD Phone: [phone] Performed at: [address] [id number] MD Sheryl Evangelista MD Phone: [phone]
== END 2021-04-10 | disposition home or self-care (01) | DRG 392 ==
LOC: ER 18:06 → EROBS 20:41 → 4S 20:41
PROVIDERS: Emergency Medicine; Nurse Practitioner Family; ADMIT Hospitalist; ATTEND Hospitalist
PROC: 0DB68ZX Excision of Stomach, Via Natural or Artificial Opening Endoscopic, Diagnostic (ICD-10-PCS; principal; 2021-04-10)
DX: K29.70 Gastritis, unspecified, without bleeding (principal); I42.9 Cardiomyopathy, unspecified; K52.9 Noninfective gastroenteritis and colitis, unspecified; Z20.822 Contact with and (suspected) exposure to COVID-19; Z88.8 Allergy status to other drugs, medicaments and biological substances; K21.9 Gastro-esophageal reflux disease without esophagitis; I10 Essential (primary) hypertension; E78.5 Hyperlipidemia, unspecified; Z79.899 Other long term (current) drug therapy; Z86.73 Personal history of transient ischemic attack (TIA), and cerebral infarction without residual deficits; Z86.711 Personal history of pulmonary embolism; Z79.01 Long term (current) use of anticoagulants; G89.29 Other chronic pain; M81.0 Age-related osteoporosis without current pathological fracture; R13.10 Dysphagia, unspecified
CPT/HCPCS: 10100